=== PATIENT | male | born 1945 | race Caucasian/White ===

== ENCOUNTER 2016-10-13 20:23 | Emergency (ER) | payer SELFPAY ==
[~2016-10-13] VITALS: Ht 170.2 cm; Wt 86.2 kg
[~2016-10-13 20:23] MED LIST: ASPIR-LOW81 MG PO; BENZTROPINE MESY1 MG PO; CIPRO500 MG PO; DOCUSATE SODIU100 MG PO; FLUOXETINE HCL10 MG PO; MAXZIDE 37.5 MG-1 EA PO; MULTIVITAMINS1 EAC6 PO; OMEPRAZOLE20 MG PO; RISPERDAL2 MG PO
[2017-02-01] MEDS ORDERED: FLOMAX0.4 MG PO (18:56)
[2017-02-01] MEDS ORDERED: FLUOXETINE HCL10 MG PO (18:56)
[2017-02-01] MEDS ORDERED: FINASTERIDE5 MG PO (18:57)
[2017-02-01] MEDS ORDERED: RISPERDAL2 MG PO (20:48)
== END 2016-10-13 21:26 | disposition left against medical advice (07) ==
LOC: ED 20:23
DX: Z53.21 Procedure and treatment not carried out due to patient leaving prior to being seen by health care provider (principal)

== ENCOUNTER 2016-11-24 20:28 | Emergency (ER) | payer OTHER ==
[~2016-11-24] VITALS: Ht 170.2 cm; Wt 88.5 kg
[2016-11-24] MEDS ORDERED: VENTOLIN HFA18 GM INH (23:05)
--- NOTE | 2016-11-25 09:56 | EKG ---
[facility] [address] [facility] [place], [place] [address] Signed Normal sinus rhythm Incomplete right bundle branch block Nonspecific T wave abnormality Abnormal ECG No previous ECGs available Confirmed by HALIMA GUO MD ([id number]) on 11/25/2016 9:56:33 AM Electronically Signed By: HALIMA GUO MD 11/25/16 0956 PATIENT NAME: ZOEY HUGHES Electrocardiogram DATE OF : 49 PHYSICIAN: HALIMA GUO MD REPORT #: [id number] REPORT IS CONFIDENTIAL AND NOT TO BE RELEASED WITHOUT AUTHORIZATION
[2017-02-01] MEDS ORDERED: FLUOXETINE HCL10 MG PO (18:56)
[2017-02-01] MEDS ORDERED: FLOMAX0.4 MG PO (18:56)
[2017-02-01] MEDS ORDERED: FINASTERIDE5 MG PO (18:57)
[2017-02-01] MEDS ORDERED: RISPERDAL2 MG PO (20:48)
== END 2016-11-24 23:21 | disposition home or self-care (01) ==
LOC: ED 20:28
DX: J44.9 Chronic obstructive pulmonary disease, unspecified (principal); F19.90 Other psychoactive substance use, unspecified, uncomplicated; I12.9 Hypertensive chronic kidney disease with stage 1 through stage 4 chronic kidney disease, or unspecified chronic kidney disease; N18.9 Chronic kidney disease, unspecified; F17.200 Nicotine dependence, unspecified, uncomplicated; Z88.0 Allergy status to penicillin; Z79.899 Other long term (current) drug therapy
CPT/HCPCS: 71010; 80053; 83880; 84484; 85025; 85379; 93005; 93010; 94640; 99284

== ENCOUNTER → 2017-02-01 | Emergency (ER) | payer OTHER ==
[~2017-02-01] VITALS: Ht 165.1 cm; Wt 94.8 kg
[~2017-02-01] MED LIST changes: +FINASTERIDE5 MG PO; +FLOMAX0.4 MG PO; +VENTOLIN HFA18 GM INH
--- NOTE | 2017-02-01 19:18 | EKG ---
[facility] [address] [facility] [place] [address] Signed Sinus rhythm with sinus arrhythmia with occasional premature ventricular complexes Otherwise normal ECG When compared with ECG of 24-NOV-2016 22:02, premature ventricular complexes are now present Confirmed by HALIMA GUO MD ([id number]) on 02/01/2017 7:18:13 PM Electronically Signed By: HALIMA GUO MD 02/01/17 1918 PATIENT NAME: ZOEY HUGHES JESS Electrocardiogram DATE OF : 49 PHYSICIAN: HALIMA GUO MD REPORT #: [id number] REPORT IS CONFIDENTIAL AND NOT TO BE RELEASED WITHOUT AUTHORIZATION
== END | disposition home or self-care (01) ==
LOC: ED 18:40
DX: R42 Dizziness and giddiness (principal); F31.9 Bipolar disorder, unspecified; F20.0 Paranoid schizophrenia; I12.9 Hypertensive chronic kidney disease with stage 1 through stage 4 chronic kidney disease, or unspecified chronic kidney disease; N18.9 Chronic kidney disease, unspecified; F17.200 Nicotine dependence, unspecified, uncomplicated; Z98.52 Vasectomy status; Z90.89 Acquired absence of other organs; Z88.0 Allergy status to penicillin; Z79.899 Other long term (current) drug therapy
CPT/HCPCS: 71010; 80053; 81001; 85025; 93005; 93010; 96360; 99284; J7030

== ENCOUNTER 2018-03-01 21:41 | Emergency (ER) | payer OTHER ==
[~2018-03-01] VITALS: Ht 165.1 cm; Wt 86.2 kg
--- OUTSIDE RECORDS SUMMARY | 2018-03-01 21:44 | XMS ---
PreManage Notification: ZOEY HUGHES Security Director Of Clinical Services Events 1 event(s) in the past 18 months Most recent security events: Elopement at [facility] 10/13/2016 20:23 - Patient eloped before treatment completed. Details: LWBS CRITERIA MET - Group Notification CARE PROVIDERS There are no care providers on record at this time. Liliya has no Care Guidelines for this patient. EJoanna VISIT COUNT (12 MO.) 1 [facility] TOTAL 1 NOTE: Visits indicate total known visits. ED/UCC VISIT TRACKING (12 MO.) 03/01/2018 21:42 [facility] [place] TYPE: Emergency COMPLAINT: - URINE ISSUES INPATIENT VISIT TRACKING (12 MO.) No inpatient visits to display in this time frame [id number]
[2018-03-01] MEDS ORDERED: CIPRO500 MG PO (22:28)
== END 2018-03-01 22:55 | disposition home or self-care (01) ==
LOC: ED 21:41
PROC: 0T9B70Z Drainage of Bladder with Drainage Device, Via Natural or Artificial Opening (ICD-10-PCS; principal; 2018-03-01)
PROC: 4A0D7LZ Measurement of Urinary Volume, Via Natural or Artificial Opening (ICD-10-PCS; 2018-03-01)
DX: R33.9 Retention of urine, unspecified (principal); I12.9 Hypertensive chronic kidney disease with stage 1 through stage 4 chronic kidney disease, or unspecified chronic kidney disease; N18.9 Chronic kidney disease, unspecified; F20.0 Paranoid schizophrenia; F31.9 Bipolar disorder, unspecified; F17.200 Nicotine dependence, unspecified, uncomplicated; Z88.0 Allergy status to penicillin; Z79.899 Other long term (current) drug therapy
CPT/HCPCS: 51702; 51798; 99283-25

== ENCOUNTER 2018-03-03 11:18 | Emergency (ER) | payer OTHER ==
[~2018-03-03] VITALS: Ht 165.1 cm; Wt 86.2 kg
--- OUTSIDE RECORDS SUMMARY | 2018-03-03 11:22 | XMS ---
PreManage Notification: ZOEY HUGHES Security Carton Wrapper Events 1 event(s) in the past 18 months Most recent security events: Elopement at [facility] 10/13/2016 20:23 - Patient eloped before treatment completed. Details: LWBS CRITERIA MET - Group Notification - [facility] - 2 Visits in 30 Days CARE PROVIDERS SASHA SALVADOR Orthopaedic Surgery 03/02/2018-Current PHONE: [phone] Liliya has no Care Guidelines for this patient. Emy VISIT COUNT (12 MO.) 2 [facility] TOTAL 2 NOTE: Visits indicate total known visits. ED/UCC VISIT TRACKING (12 MO.) 03/03/2018 11:19 [facility] [place] TYPE: Emergency COMPLAINT: - URINE PROBLEM 03/01/2018 21:42 [facility] [place] TYPE: Emergency COMPLAINT: - URINE ISSUES INPATIENT VISIT TRACKING (12 MO.) No inpatient visits to display in this time frame [id number]
== END 2018-03-03 16:10 | disposition home or self-care (01) ==
LOC: ED 11:18
DX: R30.0 Dysuria (principal); F32.9 Major depressive disorder, single episode, unspecified; I12.9 Hypertensive chronic kidney disease with stage 1 through stage 4 chronic kidney disease, or unspecified chronic kidney disease; N18.9 Chronic kidney disease, unspecified; F17.200 Nicotine dependence, unspecified, uncomplicated; Z88.0 Allergy status to penicillin; Z79.899 Other long term (current) drug therapy
CPT/HCPCS: 81001; 99283

== ENCOUNTER 2018-03-25 09:32 | Emergency (ER) | payer OTHER ==
[~2018-03-25] VITALS: Ht 165.1 cm; Wt 86.2 kg
--- OUTSIDE RECORDS SUMMARY | 2018-03-25 09:34 | XMS ---
PreManage Notification: ZOEY HUGHES Security Drop Shipment Clerk Events 1 event(s) in the past 18 months Most recent security events: Elopement at [facility] 10/13/2016 20:23 - Patient eloped before treatment completed. Details: LWBS CRITERIA MET - Group Notification - [facility] - 2 Visits in 30 Days CARE PROVIDERS SASHA SALVADOR Orthopaedic Surgery 03/02/2018-Current PHONE: [phone] Liliya has no Care Guidelines for this patient. Emy VISIT COUNT (12 MO.) 3 [facility] TOTAL 3 NOTE: Visits indicate total known visits. ED/UCC VISIT TRACKING (12 MO.) 03/25/2018 09:33 [facility] [place] TYPE: Emergency COMPLAINT: - FALL 03/03/2018 11:19 [facility] [place] TYPE: Emergency COMPLAINT: - URINE PROBLEM DIAGNOSES: - Chronic kidney disease, unspecified - Nicotine dependence, unspecified, uncomplicated - Other terminal computer operator (current) drug therapy - Allergy status to penicillin - Major depressive disorder, single episode, unspecified - Dysuria - Hypertensive chronic kidney disease with stage 1 through stage 4 chronic kidney disease, or unspecified chronic kidney disease - Hematuria, unspecified 03/01/2018 21:42 [facility] [place] TYPE: Emergency COMPLAINT: - URINE ISSUES DIAGNOSES: - Retention of urine, unspecified - Dysuria - Bipolar disorder, unspecified - Nicotine dependence, unspecified, uncomplicated - Chronic kidney disease, unspecified - Paranoid schizophrenia - Allergy status to penicillin - Hypertensive chronic kidney disease with stage 1 through stage 4 chronic kidney disease, or unspecified chronic kidney disease - Other terminal computer operator (current) drug therapy INPATIENT VISIT TRACKING (12 MO.) No inpatient visits to display in this time frame [id number]
== END 2018-03-25 13:01 | disposition home or self-care (01) ==
LOC: ED 09:32
DX: S20.212A Contusion of left front wall of thorax, initial encounter (principal); I10 Essential (primary) hypertension; F32.9 Major depressive disorder, single episode, unspecified; I12.9 Hypertensive chronic kidney disease with stage 1 through stage 4 chronic kidney disease, or unspecified chronic kidney disease; N18.9 Chronic kidney disease, unspecified; F20.0 Paranoid schizophrenia; F17.200 Nicotine dependence, unspecified, uncomplicated; Z88.0 Allergy status to penicillin; Z79.899 Other long term (current) drug therapy; W19.XXXA Unspecified fall, initial encounter; Y92.002 Bathroom of unspecified non-institutional (private) residence as the place of occurrence of the external cause
CPT/HCPCS: 71045; 80053; 81001; 85025; 96360; 99285-25; J7030

== ENCOUNTER 2018-06-30 07:40 | Emergency (ER) | payer MEDICARE, MEDICAID ==
[~2018-06-30] VITALS: Ht 165.1 cm; Wt 86.2 kg
--- OUTSIDE RECORDS SUMMARY | ~2018-06-30 | XMS | Clinical Summary ---
Demographics + + + | Address | [address] | | | [place] [address] | + + + | Home Phone | | + + + | Preferred Language | Unknown | + + + | Marital Status | Unknown | + + + | Yazdanism Affiliation | Unknown | + + + | Race | Unknown | + + + | Ethnic Group | Unknown | + + + Author + + + | Author | [facility] | | | and [place] | + + + | Organization | [facility] | | | and [place] | + + + | Address | Unknown | + + + | Phone | Unavailable | + + + Care Team Providers + +------+ + | Care Manager Med Surg Name | Role | Phone | + +------+ + PP | Unavailable | + +------+ + Allergies Not on File Medications Not on file Active Problems Not on file Social History + +-------+ +--------+------+ | Tobacco Use | Types | Packs/Day | Years | Date | | | | | Used | | + +-------+ +--------+------+ | Never Assessed | | | | | + +-------+ +--------+------+ + + + | Sex Assigned at | Date Recorded | | | | + + + | Not on file | | + + + + + + + | Job Start Date | Occupation | Industry | + + + + | Not on file | Not on file | Not on file | + + + + + + + + | Travel History | Travel Start | Travel End | + + + + + + | No recent travel history available. | + + Plan of Treatment + + + + + | Health Maintenance | Due Date | Last Done | Comments | + + + + + | Vaccine: | | | | | Dtap/Tdap/Td (1 - | 7 | | | | Tdap) | | | | + + + + + | Vaccine: Zoster (1 | | | | | of 2) | 8 | | | + + + + + | Vaccine: | | | | | Pneumococcal 65+ | 3 | | | | Low/Medium Risk (1 | | | | | of 2 - PCV13) | | | | + + + + + | Vaccine: Influenza | | | | | (Season Ended) | 9 | | | + + + + + Results Not on filefrom Last 3 Months Advance Directives Patient has advance care planning documents on file. For more information, please contact:[facility] [place] [address]"
--- OUTSIDE RECORDS SUMMARY | ~2018-06-30 | XMS | Clinical Summary ---
Demographics + + + | Address | [address] | | | [place] [address] | + + + | Home Phone | | + + + | Preferred Language | Unknown | + + + | Marital Status | | + + + | Synagogue Affiliation | Unknown | + + + | Race | Unknown | + + + | Ethnic Group | Unknown | + + + Author + + + | Author | [facility] | + + + | Organization | [facility] | + + + | Address | Unknown | + + + | Phone | Unavailable | + + + Support + + + + + | Name | Relationship | Address | Phone | + + + + + | None,Per Pt | ECON | [facility] [place] [place] [address] | | + + + + + Care Team Providers + +------+ + | Care Cellar Worker Name | Role | Phone | + +------+ + | Yadira Canela Hilton | PP | | + +------+ + Allergies + + + + + + | Active Allergy | Reactions | Severity | Noted | Comments | | | | | Date | | + + + + + + | Penicillins | Rash | Medium | 12/28/19 | | | | | | 16 | | + + + + + + Current Medications + + +--------+---------+------+------+-------+ | Prescription | Sig. | Disp. | Refills | Star | End | Statu | | | | | | t | Date | s | | | | | | Date | | | + + +--------+---------+------+------+-------+ | risperidone | Take 2 mg by mouth | | | | | Activ | | (RISPERDAL) 2 MG | nightly. | | | | | e | | tabletIndications: | Indications: | | | | | | | Bipolar Mood | Manic-Depression | | | | | | | Disorder | | | | | | | + + +--------+---------+------+------+-------+ | benztropine | Take 1 mg by mouth 2 | | | | | Activ | | (COGENTIN) 1 MG | (two) times daily. | | | | | e | | tabletIndications: | Indications: | | | | | | | Drug-Induced | Extrapyramidal | | | | | | | Extrapyramidal | Reaction caused by | | | | | | | Reaction | Medications | | | | | | + + +--------+---------+------+------+-------+ | apixaban (ELIQUIS) | Take 2 tab po BID X | 60 | 0 | 11 | | Activ | | 5 MG tablet | 7 days1 tab po bid | tablet | | 5/20 | | e | | | | | | 16 | | | + + +--------+---------+------+------+-------+ Active Problems + + + | Problem | Noted Date | + + + | Urinary retention | 12/30/2015 | + + + | Bipolar disorder, unspecified | 12/28/2015 | + + + | GERD (gastroesophageal reflux disease) | 12/28/2015 | + + + | Deep vein thrombosis (DVT) of left lower extremity (HCC) | 12/28/2015 | + + + Social History + +-------+ +--------+------+ | Tobacco Use | Types | Packs/Day | Years | Date | | | | | Used | | + +-------+ +--------+------+ | Current Every Day | | 1 | 30 | | | Smoker | | | | | + +-------+ +--------+------+ + +---+---+---+ | Smokeless Tobacco: | | | | | Former User | | | | + +---+---+---+ + + | Tobacco Cessation: Ready to Quit: Yes; Counseling Given: Yes | + + + + + | Sex Assigned at | Date Recorded | | | | + + + | Not on file | | + + + Last Filed Vital Signs + + + + | Vital Sign | Reading | Time Taken | + + + + | Blood Pressure | 146/85 | 04/27/2016 2:28 PM PDT | + + + + | Pulse | 88 | 04/27/2016 2:28 PM PDT | + + + + | Temperature | 36.7 C (98.1 F) | 01/01/2016 11:02 AM PST | + + + + | Respiratory Rate | 16 | 01/01/2016 11:02 AM PST | + + + + | Oxygen Saturation | 94% | 04/27/2016 2:28 PM PDT | + + + + | Inhaled Oxygen | - | - | | Concentration | | | + + + + | Weight | 90.7 kg (200 lb) | 04/27/2016 2:28 PM PDT | + + + + | Height | 165.1 cm (5' 5") | 12/28/2015 8:17 PM PST | + + + + | Body Mass Index | 33.28 | 04/27/2016 2:28 PM PDT | + + + + Plan of Treatment + + + + + | Health Maintenance | Due Date | Last Done | Comments | + + + + + | Vaccine: | | | | | Dtap/Tdap/Td (1 - | 7 | | | | Tdap) | | | | + + + + + | Colon Cancer | | | | | Screening | 8 | | | | (Colonoscopy) | | | | + + + + + | Vaccine: Zoster (1 | | | | | of 2) | 8 | | | + + + + + | Lung Cancer | | | | | Screening | 3 | | | + + + + + | Vaccine: | | 12/23/2015 | | | Pneumococcal 65+ | 7 | | | | Low/Medium Risk (2 | | | | | of 2 - PPSV23) | | | | + + + + + | Vaccine: Influenza | | 12/23/2015 | | | (Season Ended) | 9 | | | + + + + + Results Not on filefrom Last 3 Months Insurance + +--------+ +------+ + + | Payer | Benefi | Subscriber | Type | Phone | Address | | | t Plan | ID | | | | | | / | | | | | | | Group | | | | | + +--------+ +------+ + + | MEDICARE | MEDICA | [id number] | | | [address] | | | RE | | | | [place] [address] | | | PART A | | | | | | | ONLY | | | | | + +--------+ +------+ + + | VETERANS | VETERA | [id number] | | [phone] | FEE SERVICES [id number] | | ADMINISTRATION | [place] | | | [phone] | | | [address] | | | | [address] [place], [place] | | | [place] | | | | [phone] | | | ON | | | | | + +--------+ +------+ + + + +--------+ +--------+ + + | Guarantor Name | Accoun | Relation to | Date | Phone | Billing Address | | | t Type | Patient | of | | | | | | | | | | + +--------+ +--------+ + + | RUY HUGHES | Person | Self [birth year] | Home: | [address] | | | al/Fam | | 1946 | [phone] | | | [place] | | | 1861 | [place], [place] | | | | | | | [phone] | + +--------+ +--------+ + + | RUY 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
--- OUTSIDE RECORDS SUMMARY | ~2018-06-30 | XMS | Clinical Summary ---
Demographics + + + | Address | [address] | | | [place] [address] | + + + | Home Phone | | + + + | Preferred Language | Unknown | + + + | Marital Status | | + + + | Tenriism Affiliation | Unknown | + + + | Race | Unknown | + + + | Ethnic Group | Unknown | + + + Author + + + | Author | [facility] | + + + | Organization | [facility] | + + + | Address | Unknown | + + + | Phone | Unavailable | + + + Support + + + + + | Name | Relationship | Address | Phone | + + + + + | None,Per Pt | ECON | [facility] [place] [address] | | + + + + + Care Team Providers + +------+ + | Care Route Sales Person Name | Role | Phone | + [...] + + | MEDICARE | MEDICA | [id number] | | | [address] | | | RE | | | | [place] [address] | | | PART A | | | | | | | ONLY | | | | | + +--------+ +------+ + + | VETERANS | VETERA | [id number] | | [phone] | FEE SERVICES [address] | | ADMINISTRATION | [place] | | | [phone] | | | [address]I | | | | [address] [place], [place] | | | [place] | | | | [phone] | | | ON | | | [...] | | | | | | | [phone] | + +--------+ +--------+ + + | RUY HUGHES | 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
--- OUTSIDE RECORDS SUMMARY | ~2018-06-30 | XMS | Clinical Summary ---
Demographics + + + | Address | [address] | | | [place] [address] | + + + | Home Phone | | + + + | Preferred Language | Unknown | + + + | Marital Status | Unknown | + + + | Lutheran Affiliation | Unknown | + + + | Race | Unknown | + + + | Ethnic Group | Unknown | + + + Author + + + | Author | [facility] | | | and [place] | + + + | Organization | [facility] | | | and [place] | + + + | Address | Unknown | + + + | Phone | Unavailable | + + + Care Team Providers + +------+ + | Care Financial Representative Name | Role | Phone | + [...] documents on file. For more information, please contact:[facility] [place] [address]"
--- OUTSIDE RECORDS SUMMARY | 2018-06-30 07:44 | XMS ---
PreManage Notification: ZOEY HUGHES Security Telegraph Repeater Technician Events No recent Security Events currently on file CRITERIA MET - Group Notification CARE PROVIDERS MADELEINESASHA Jade Orthopaedic Surgery 03/02/2018-Current PHONE: [phone] Liliya has no Care Guidelines for this patient. EJoanna VISIT COUNT (12 MO.) 4 [facility] TOTAL 4 NOTE: Visits indicate total known visits. ED/UCC VISIT TRACKING (12 MO.) 06/30/2018 07:42 [facility] [place] TYPE: Emergency COMPLAINT: - SOB/DISTENDED STOMACH 03/25/2018 09:33 [facility] [place] TYPE: Emergency COMPLAINT: - FALL DIAGNOSES: - Hypertensive chronic kidney disease with stage 1 through stage 4 chronic kidney disease, or unspecified chronic kidney disease - Bathroom of unspecified non-institutional (private) residence single-family (private) house as the place of occurrence of the external cause - Chronic kidney disease, unspecified - Paranoid schizophrenia - Major depressive disorder, single episode, unspecified - Allergy status to penicillin - Unspecified fall, initial encounter - Other alf (current) drug therapy - Contusion of left front wall of thorax, initial encounter - Essential (primary) hypertension - Nicotine dependence, unspecified, uncomplicated - Chest pain, unspecified 03/03/2018 11:19 [facility] [place] TYPE: Emergency COMPLAINT: - URINE PROBLEM DIAGNOSES: - Chronic kidney disease, unspecified - Nicotine dependence, unspecified, uncomplicated - Other termite exterminator (current) drug therapy - Allergy status to penicillin - Major depressive disorder, single episode, unspecified - Dysuria - Hypertensive chronic kidney disease with stage 1 through stage 4 chronic kidney disease, or unspecified chronic kidney disease - Hematuria, unspecified 03/01/2018 21:[address] [facility] [place] TYPE: Emergency COMPLAINT: - URINE ISSUES DIAGNOSES: - Retention of urine, unspecified - Dysuria - Bipolar disorder, unspecified - Nicotine dependence, unspecified, uncomplicated - Chronic kidney disease, unspecified - Paranoid schizophrenia - Allergy status to penicillin - Hypertensive chronic kidney disease with stage 1 through stage 4 chronic kidney disease, or unspecified chronic kidney disease - Other alf (current) drug therapy INPATIENT VISIT TRACKING (12 MO.) No inpatient visits to display in this time frame [id number]
[2018-06-30] MEDS ORDERED: ZIAC 2.5-6.25 MG1 EA PO (07:59)
== END 2018-06-30 10:16 | disposition home or self-care (01) ==
LOC: ED 07:40
DX: N40.1 Benign prostatic hyperplasia with lower urinary tract symptoms (principal); R33.9 Retention of urine, unspecified; I12.9 Hypertensive chronic kidney disease with stage 1 through stage 4 chronic kidney disease, or unspecified chronic kidney disease; N18.9 Chronic kidney disease, unspecified; F17.200 Nicotine dependence, unspecified, uncomplicated; F32.9 Major depressive disorder, single episode, unspecified; F20.9 Schizophrenia, unspecified; F31.9 Bipolar disorder, unspecified; Z88.0 Allergy status to penicillin; Z79.899 Other long term (current) drug therapy
CPT/HCPCS: 51702; 51798; 80053; 81001; 83690; 85025; 99284-25; C9113; J2405; J7040

== ENCOUNTER 2019-09-20 07:35 | Day surgery (SDC) | payer MEDICARE, MEDICAID ==
[~2019-09-20] VITALS: Ht 165.1 cm; Wt 86.2 kg
[~2019-09-20 07:35] MED LIST changes: +BISACODYL5 MG PO; +ZIAC 2.5-6.25 MG1 EA PO
--- NOTE | 2019-09-20 08:12 | NUR ---
PT IS A POOR HISTORIAN AND CAN NOT CONFIRM HIS MEDICATION LIST. HE REPORTS, "IT'S THE LIST I BROUGHT WITH ME TO YESTERDAYS APPOINTMENT". HE CAN'T REMEMBER RIGHT NOW WHICH PHARMACY HE USES. WE ARE RELYING ON THE LIST FROM YESTERDAYS APPOINTMENT AND THE MD'S OFFICE NOTE FOR HIS MEDICATION LIST.
--- NOTE | 2019-09-20 09:58 | NUR ---
PT RETURNED TO DAY SURGERY FROM ENDO ROOM WITHOUT RECIEVING MEDICATION FROM RENEWABLE ENERGY CONSULTANT. IV REMOVED, PT'S DESIGNATED KEY WORKER CALLED AND PT AMBULATED TO [facility] TO WAIT FOR KEY WORKER. WILL PLAN FOR FOLLOWUP SCHEDULING C-SCOPE WITH MORE PREP WITHIN THE NEXT TWO WEEKS.
--- NOTE | 2019-09-20 10:50 | OR ---
[facility] [address] [place], [place] [address] Signed DATE OF OPERATION: 09/20/2019 SURGEON: Zofia Emery MD PREOPERATIVE DIAGNOSES: 1. Personal history of colonic polyps in 2013 and 2016. 2. Chronic constipation. 3. Rectal bleeding with guaiac-positive stool. 4. Diverticulosis. POSTOPERATIVE DIAGNOSES: 1. Poor bowel prep. 2. Enlarged prostate. PROCEDURE: Limited colonoscopy (sigmoid colon). ESTIMATED BLOOD LOSS: None. INDICATIONS: Ruy is a 74-year-old gentleman, asked to see me for a followup colonoscopy. From his records, he has had colonic polyps removed in 2013 and in 2016. He had precancerous polyp in 2016. He was asked to come back in four years. He also complains of chronic constipation. He noticed some blood with his stools, so he went to our local urgent care clinic. He was guaiac-positive on exam. Consequently, he was asked to see me with respect to the above. We can see from his records, he had five polyps taken out in 2016, all were 6 mm or less in diameter. Also, he is known to have diverticulosis. No family history of colon cancer or polyps. He told me today he has had 5 or 6 colonoscopies in his life. He said two of those were at [facility] in [place], [place]. He told me he is quite convinced he had no drugs for those two colonoscopies. Consequently, he wanted to proceed today without any drugs. He told me if the pain was too much, then he would allow the anesthesia provider to provide medications. In the office, I gave him a pamphlet on colonoscopy. We looked at that together along with the risks including, but not limited to gas bloating, crampy abdominal pain, bleeding, perforation requiring surgery, and missed diagnosis. In addition, he is well aware that colon polyps grow and become colon cancers. He had expressed understanding and wished to proceed. DESCRIPTION OF PROCEDURE: Electronically Signed By: ZOFIA EMERY MD 09/20/19 1050 PATIENT NAME: RUY HUGHES OPERATIVE REPORT DATE OF : 49 REPORT #: [id number] PHYSICIAN: ZOFIA EMERY MD PCP: PAN SUTTON MD REPORT IS CONFIDENTIAL AND NOT TO BE RELEASED WITHOUT AUTHORIZATION [facility] [address] [place] [id number] Signed Ruy was taken into our endoscopy suite and placed in the left lateral decubitus position. We did have our anesthesia provider in the room monitoring the patient. We did not give any drugs. He told us that he took his bowel prep and felt he had multiple good bowel movements. On digital rectal exam, we can see that his prostate was moderately enlarged and indurated. The adult colonoscope was then introduced. We immediately encountered thick brown particulate liquid stool matter. We advanced the scope up into the mid sigmoid colon. We continued to encounter large amounts of thick particulate brown liquid stool matter. At that point, it was not safe to advance the scope any further. Consequently, we had to withdrawal the scope. Of course, Ruy was awake during this and he was able to follow us on our TV screen. Ruy himself said that "I must need a double bowel prep." After this, the gas had been suctioned out and the gastroscope removed. Ruy had tolerated that limited colonoscopy quite well. RECOMMENDATIONS: Ruy will be rescheduled with a double bowel prep through my office next week. MD HOMERO Lucas/MODL /[id number] cc: Zofia Emery MD Copies: ZOFIA EMERY MD ~ Electronically Signed By: ZOFIA EMERY MD 09/20/19 1050 PATIENT NAME: RUY HUGHES OPERATIVE REPORT DATE OF : 49 REPORT #: [id number] PHYSICIAN: ZOFIA EMERY MD PCP: PAN SUTTON MD REPORT IS CONFIDENTIAL AND NOT TO BE RELEASED WITHOUT AUTHORIZATION
== END 2019-09-20 09:54 | disposition home or self-care (01) ==
LOC: DS 07:35 → OPS 07:35 → DS 09:00 → OPS 09:00
PROVIDERS: Colon & Rectal Surgery
PROC: 0DJD8ZZ Inspection of Lower Intestinal Tract, Via Natural or Artificial Opening Endoscopic (ICD-10-PCS; principal; 2019-09-20 09:00)
DX: K62.5 Hemorrhage of anus and rectum (principal); R19.5 Other fecal abnormalities; N40.0 Benign prostatic hyperplasia without lower urinary tract symptoms; I10 Essential (primary) hypertension; F31.9 Bipolar disorder, unspecified; F17.210 Nicotine dependence, cigarettes, uncomplicated; Z86.010 Personal history of colon polyps; Z79.899 Other long term (current) drug therapy; Z88.0 Allergy status to penicillin

== ENCOUNTER 2020-01-19 02:09 | Emergency (ER) | payer MEDICARE, MEDICAID ==
[~2020-01-19] VITALS: Ht 165.1 cm; Wt 88.5 kg
[~2020-01-19 02:09] MED LIST changes: +RISPERIDONE2 MG PO
--- OUTSIDE RECORDS SUMMARY | 2020-01-19 02:12 | XMS ---
PreManage Notification: ZOEY HUGHES Security Hat Body Inspector Events No recent Security Events currently on file CRITERIA MET - Group Notification CARE PROVIDERS Vincenzo Singh Orthopaedic Surgery 03/02/2018-Current PHONE: [phone] Liliya has no Care Guidelines for this patient. Emy VISIT COUNT (12 MO.) 1 [facility] TOTAL 1 NOTE: Visits indicate total known visits. ED/UCC VISIT TRACKING (12 MO.) 01/19/2020 02:09 [facility] [place] TYPE: Emergency COMPLAINT: - ABDOMINAL PAIN INPATIENT VISIT TRACKING (12 MO.) No inpatient visits to display in this time frame [email or web address]
--- NOTE | 2020-01-19 20:12 | EKG ---
[facility] [address] [facility] [place], [place] [address] Signed Sinus bradycardia Incomplete right bundle branch block Cannot rule out Anterior infarct (cited on or before 16-SEP-2019) Abnormal ECG When compared with ECG of 16-SEP-2019 13:47, No significant change was found Confirmed by ROBYN PATRICIA DO ([id number]) on 01/19/2020 8:12:34 PM Electronically Signed By: ROBNY PATRICIA DO 01/19/202011 PATIENT NAME: ZOEY HUGHES Electrocardiogram DATE OF : 49 PHYSICIAN: ROBYN PATRICIA DO REPORT #: [id number] REPORT IS CONFIDENTIAL AND NOT TO BE RELEASED WITHOUT AUTHORIZATION
== END 2020-01-19 06:19 | disposition home or self-care (01) ==
LOC: ED 02:09
DX: K80.70 Calculus of gallbladder and bile duct without cholecystitis without obstruction (principal); K85.90 Acute pancreatitis without necrosis or infection, unspecified; F19.10 Other psychoactive substance abuse, uncomplicated; F32.9 Major depressive disorder, single episode, unspecified; I12.9 Hypertensive chronic kidney disease with stage 1 through stage 4 chronic kidney disease, or unspecified chronic kidney disease; N18.9 Chronic kidney disease, unspecified; F17.200 Nicotine dependence, unspecified, uncomplicated; Z88.0 Allergy status to penicillin; Z79.899 Other long term (current) drug therapy
CPT/HCPCS: 51798; 71045; 74177; 76705; 80053; 81001; 83690; 83735; 84484; 85025; 85610; 85730; 93005; 93010; 99285-25; G0480; J7030; Q9967

== ENCOUNTER 2020-01-20 12:45 | Observation (INO) | payer MEDICARE, MEDICAID ==
[~2020-01-20] VITALS: Ht 165.1 cm; Wt 92.2 kg
--- OUTSIDE RECORDS SUMMARY | 2020-01-20 12:48 | XMS ---
PreManage Notification: ZOEY HUGHES Security Flatwork Catcher Events No recent Security Events currently on file CRITERIA MET - Group Notification - [facility] - 2 Visits in 30 Days CARE PROVIDERS Vincenzo Singh Orthopaedic Surgery 03/02/2018-Current PHONE: [phone] Liliya has no Care Guidelines for this patient. Emy VISIT COUNT (12 MO.) 2 [facility] TOTAL 2 NOTE: Visits indicate total known visits. ED/UCC VISIT TRACKING (12 MO.) 01/20/2020 12:46 [facility] [place] TYPE: Emergency COMPLAINT: - UPPER ABD PAIN, DIARRHEA, HYPERVENTILATING 01/19/2020 02:09 [facility] [place] TYPE: Emergency COMPLAINT: - ABDOMINAL PAIN INPATIENT VISIT TRACKING (12 MO.) No inpatient visits to display in this time frame [id number]
--- NOTE | 2020-01-20 18:05 | NUR ---
PT RESTING IN BED ALERT AND ORIENTED. V/S STABLE.
--- NOTE | 2020-01-20 19:10 | NUR ---
SHIFT REPORT FROM NURSE SHOOK. PT IS LAYING IN BED ON HIS BACK. PT STATES HE IS STILL "TENDER" IN ABDOMEN. ENCOURAGED PT TO AMBULATE BEFORE BED THIS EVENING AND PT AGREES. PT DENIES FURTHER NEEDS AT THIS TIME. CALL LIGHT WITHIN REACH
--- NOTE | 2020-01-20 19:51 | NUR ---
CLINICAL LABORATORY TECHNICIAN INFORMED THIS NURSE THAT PT WAS VOMITING. 8MG ZOFRAN ADMINISTERED IV. SO FAR PT HAS JUST HAD DRY HEAVES. CALL LIGHT WITHIN REACH
--- NOTE | 2020-01-20 21:30 | NUR ---
IN ROOM FOR ASSESSMENT AND VS. PT IS DRY HEAVING LOUDLY. 12.5MG PHENERGAN DILUTED PER PROTOCOL AND ADMINISTERED VIA IV PIGGYBACK. PT REPORTS A HEADACHE BUT DECLINES PRN PAIN MEDS AT THIS TIME. PT IS ORIENTED BUT DELUSIONAL STATING HE CAN SEE "VIRUSES IN THE VITO IN SWARMS" AND REPORTS THAT HIS LITTLE BROTHER "ATE HIS FRECKLES" WHEN HE WAS A YOUNG BOY. PT IS CALM AND RELAXED, TALKATIVE IN BED DURING PHENERGAN ADMINISTRATION. THIS NURSE STAYS IN ROOM DURING ADMINISTRATION.
--- NOTE | 2020-01-20 22:49 | NUR ---
CHECKED ON PT. PT IS LAYING RIGHT LATERAL, RESTING QUIETLY. NO NAUSEA AT THIS TIME. CALL LIGHT WITHIN REACH. BED ALARM ON FOR SAFETY.
--- NOTE | 2020-01-20 23:27 | NUR ---
CALL LIGHT ANSWERED. EMPTIED URINAL. WIPED SIDE TABLE AND FLOOR WITH HOOKER WIPES FROM URINE SPILLED. NO OTHER NEEDS AT THIS TIME.
--- NOTE | 2020-01-20 23:56 | NUR ---
DISCUSSED NPO STATUS WITH pt, pt VERBALIZED UNDERSTANDING. PROVIDED ORAL SWABS. NO REQUESTS AT THIS TIME. CALL LIGHT WITHIN REACH.
--- NOTE | 2020-01-21 02:53 | NUR ---
CALL LIGHT ANSWERED. PT C/O R ARM PAIN NEAR IV SITE. IV IS INFILTRATED AND D/C'D. NEW IV PLACED ON L FA. PT REPOSITIONED C/O BACK PAIN WHICH RESOLVED WITH REPOSITIONING. CALL LIGHT WITHIN REACH
--- NOTE | 2020-01-21 05:10 | NUR ---
IN ROOM FOR MORNING VS AND ASSESSMENT. PT REPORTS PAIN IN HIPS, BACK, NECK AND OCCASIONALLY ABDOMEN. WHEN ASKED PT IF HE NEEDS PAIN MEDS HE ANSWERS " I DONT KNOW". WITH FURTHER DISCUSSION, PT AGREES TO "SOMETHING FOR PAIN". 0.5MG DILAUDID IV. ASSESSMENT COMPLETE. VSS. NO FURTHER NEEDS AT THIS TIME.
--- NOTE | 2020-01-21 06:51 | CONS ---
[facility] [address], [place] [address] Signed DATE OF CONSULTATION: 01/20/2020 CHIEF COMPLAINT: Right upper quadrant abdominal pain. HISTORY OF PRESENT ILLNESS: Ruy is a 74-year-old gentleman, who came to the emergency room yesterday with some right upper quadrant abdominal pain. His liver function tests were not particularly concerning. Lipase was only just over 200. He is feeling better and was allowed to be discharged to home and was scheduled to come and see me in the office. He came back today with continued right upper quadrant abdominal pain and some nausea. White count is normal, but liver function tests are up just a bit. Lipase about the same around 250. He is also positive for methamphetamines and ecstasy. Given his current situation, I was asked to admit him as a general surgeon on-call. He has been given Rocephin and Flagyl in the meantime along with some IV fluids and pain control. Overall, he said he is feeling much better. PAST MEDICAL HISTORY: Hypertension, depression, paranoid schizophrenia, bipolar disorder, urinary retention and diverticulosis. PAST SURGICAL HISTORY: Includes tonsils, vasectomy and a colonoscopy with Dr. Emery in 2019. SOCIAL HISTORY: He likes to smoke. He only drinks once in a while. He lives alone and drives. He prefers the [facility]. Ashly Wilkinson is his friend at [phone]. Dr. Pan Sutton is his primary care provider. FAMILY HISTORY: Unremarkable. REVIEW OF SYSTEMS: He had 10 systems reviewed. There is nothing new to add. ALLERGIES: Penicillin. MEDICATIONS: Benztropine, Risperdal, omeprazole, Maxzide, fluoxetine, Flomax, finasteride, bisoprolol, bisacodyl, docusate and risperidone. PHYSICAL EXAMINATION: Electronically Signed By: ZOFIA EMERY MD 01/21/20 0651 PATIENT NAME: RUY HUGHES CONSULTATION DATE OF : 49 REPORT #: [id number] PHYSICIAN: ZOFIA EMERY MD PCP: PAN SUTTON MD REPORT IS CONFIDENTIAL AND NOT TO BE RELEASED WITHOUT AUTHORIZATION [facility] [address], [place] [address] Signed VITAL SIGNS: Blood pressure 146/87, heart rate 75, respiratory rate 16, temperature is 97.9, he is 99% on room air. He is 5 feet 5 inches, 88 kg. GENERAL: Ruy is a 74-year-old gentleman, who appears his stated age. He is lying supine in his hospital bed. His nurses with us. He is not ill or toxic. He is not jaundiced. LUNGS: Generally clear to auscultation bilaterally. HEART: Regular rate and rhythm. ABDOMEN: Obese but soft and nontender after his pain medication. LABORATORY DATA: White blood count 7.4, hemoglobin 14, neutrophils 73, platelets 215. BUN 14, creatinine 0.78, total bilirubin is 1.0, AST 191, ALT 252, alkaline phosphatase 127, albumin is 4, lipase 251. Tox screen showed positive for meth and ecstasy. RADIOGRAPHIC STUDIES: The CT scan from yesterday shows gallstones with a mildly thickened gallbladder wall and some mild inflammation around the pancreas and diverticulosis in the colon. Ultrasound from yesterday showed the stones with one stuck in the neck of the gallbladder. The gallbladder wall is a little thick at 5.6 mm. He had a positive Hernandes's sign and the common bile duct was 7 mm. ASSESSMENT AND PLAN: Ruy is a 74-year-old gentleman, who presents with ongoing acute cholecystitis, cholelithiasis, and mild pancreatitis. He has been admitted with IV fluids, antibiotics and pain control. We are going to hydrate him overnight, repeat the labs in the morning. More than likely, we will do a surgery sometime tomorrow or the next day. I have reviewed all this with Ruy in detail. He has expressed understanding and agrees with the above plan. Zofia Emery MD ALB/MODL /[id number] cc: Pan Sutton MD Copies: PAN SUTTON DMD Electronically Signed By: ZOFIA EMERY MD 01/21/20 0651 PATIENT NAME: RUY HUGHES CONSULTATION DATE OF : 49 REPORT #: [id number] PHYSICIAN: ZOFIA EMERY MD PCP: PAN SUTTON MD REPORT IS CONFIDENTIAL AND NOT TO BE RELEASED WITHOUT AUTHORIZATION [facility] [address] [place] [address] Signed ~ Electronically Signed By: ZOFIA EMERY MD 01/21/20 0651 PATIENT NAME: RUY HUGHES CONSULTATION DATE OF : 49 REPORT #: [id number] PHYSICIAN: ZOFIA EMERY MD PCP: PAN SUTTON MD REPORT IS CONFIDENTIAL AND NOT TO BE RELEASED WITHOUT AUTHORIZATION
--- NOTE | 2020-01-21 07:46 | NUR ---
THIS RN IN PTS ROOM TO START PTS ANTIBIOTIC AND THEN WILL START PTS POTASSIUM DUE TO THE POTASSIUM HAVING TO RUN IN FOR 4 HRS. PT STATES THAT HIS PAIN IS A 5/10 AND STATES THAT IT IS TOLERABLE AT THIS TIME. PT STATED TO THIS RN "I WONDER WHAT THE FASTEST THING IN NATURE"
--- NOTE | 2020-01-21 09:30 | NUR ---
PATIENT RESTING IN BED. RN IN ROOM. VITAL SIGNS AND I&O DONE. CALL LIGHT WITHIN REACH. NO OTHER NEEDS AT THIS TIME
--- NOTE | 2020-01-21 09:34 | NUR ---
In to see pt, he is speaking with Ph[facility].
--- NOTE | 2020-01-21 10:00 | NUR ---
Returned to speak with pt for CM assessment. He has gone to surgery.
--- NOTE | 2020-01-21 10:07 | NUR ---
PATIENT RESTING IN BED. PATIENT'S BODY CLEANED WITH HIBICLEANS BEFORE HE GOES TO SURGERY. GOWN CHANGED. CALL LIGHT WITHIN REACH. NO OTHER NEEDS AT THIS TIME
--- NOTE | 2020-01-21 10:18 | NUR ---
MED REC COMPLETE
--- NOTE | 2020-01-21 10:30 | NUR ---
PT OFF FLOOR TO SURGERY
--- NOTE | 2020-01-21 11:47 | EKG ---
[facility] [address] [facility] [place], [place] [address] Signed Normal sinus rhythm Incomplete right bundle branch block Cannot rule out Anterior infarct (cited on or before 16-SEP-2019) Abnormal ECG When compared with ECG of 19-JAN-2020 02:15, No significant change was found Confirmed by ROBYN PATRICIA DO ([id number]) on 01/21/2020 11:46:40 AM Electronically Signed By: ROBYN PATRICIA DO 01/21/20 1147 PATIENT NAME: ZOEY HUGHES JESS Electrocardiogram DATE OF : 49 PHYSICIAN: ROBYN PATRICIA DO REPORT #: [id number] REPORT IS CONFIDENTIAL AND NOT TO BE RELEASED WITHOUT AUTHORIZATION
--- NOTE | 2020-01-21 12:47 | NUR ---
01/21/20 1247 Natasha Gonzales 1238- PT TO PACU IN SUPINE POSITION. EYES CLOSED. DOES NOT RESPOND TO VERBAL STIMULI. BREATHING EASY AND UNLABORED WITH REPOSITIONING. SPO2 >95% ON 6 L O2 VIA SIMPLE MASK. LAP SITES CDI. 1244- PT CONTINUES TO SLEEP, DOES NOT RESPOND TO VERBAL STIMULI. VSS. BREATHING EASY AND UNLABORED WITH PILLOW POSITIONING.
--- NOTE | 2020-01-21 13:45 | NUR ---
PT BACK TO FLOOR. PT HAS 5 LAP SITES. ALL ARE CLEAN/ DRY/ INTACT. PT STATES THAT HIS PAIN IS OKAY. PT ON 4L NC, THIS RN PLACED PT ON CPOX.
--- NOTE | 2020-01-21 14:32 | NUR ---
PT BACK IN FROM PACU. PT SITTING UPRIGHT IN BED, WATCHING TV WITH DAMP W[employer] CLOTH ON FOREHEAD. PT STATED HE WONDERED IF PAIN MEDS WERE MAKING HIS TALK CONSTANTLY-WHETHER ANYONE IS THERE OR NOT. PASSED ON TO RN HOSPITALASHLEY HSOOK. SHE WILL FOLLOW UP. PT REQUESTED PRAYER, WILL FOLLOW
--- NOTE | 2020-01-21 14:45 | NUR ---
THIS RN IN TO CHECK ON PT. PT STATES THAT HE IS WILLING TO GO HOME THIS EVENING. PT STATES THAT HE DROVE HIMSELF TO THE HOSPITAL. PT STATES THAT HIS PAIN IS GOOD AND HE HAS NO NAUSEA. THIS RN PROVIDED PT WITH WATER, CRACKERS, AND JELLO. THIS RN TO TALK TO RENE RN TO DISCUSS A SAFE DISCHARGE PLAN. PT ABLE TO VOID IN URINAL PRIOR TO THIS RN IN ROOM
[2020-01-21] MEDS ORDERED: HYDROCODON-ACE1 EAC8 PO (14:57)
--- NOTE | 2020-01-21 15:00 | NUR ---
In and spoke with Ruy. He lives alone in an apartment. He drove himself to the hospital and plans on driving home. Discussed with pt he can absolutely not drive home today. We will send by taxi and give a taxi ticket to return for his vehicle tomorrow. He is stating has 0 money to take a taxi to fruit picker his car and his friend had a knee replacement last week and cannot drive. He agrees to not drive. Pt admits to alcohol and polysubstance abuse, he does not say last use, but states its been a while. I also asked about his mental health diagnosis and he does not believe they are accurate. I offered Peer to Peer support for A&D and to assist him with [employer] for resource. He decline both. He states he has food and denies any needs when he arrives home. I discussed food for tonight, we will send with a box dinner so he does not have to cook tonight. He is in contact with [facility] and [facility] and states they assist him as needed. He has not walked or been out of bed. He states he had a "bad fall" a year ago and was injured. Texted Dr. Nieto and requested order for PT and verbal order received. Order entered and PT notified.
--- NOTE | 2020-01-21 16:15 | NUR ---
THIS RN IN PTS ROOM TO DO POST OPP VITAL CHECK #3. PT WAS UP WITH PHYSICAL THERAPY TO ASSESS IF PT COULD GO HOME SAFELY. THIS RN AND VIANNEY FROM PT DISCUSSED WITH PT THAT IT MIGHT BE SAFER FOR PT TO STAY THE NIGHT FOR SAFETY. PT AGREEABLE TO STAY. PT HAS SLIGHT SHADOWING ON SOME OF HIS LAP SITES. OTHERWISE LAP SITES ARE CLEAN/ DRY/ INTACT. PT STATES PAIN IS OKAY AND DENIES NEED FOR PAIN MED AT THIS TIME.
--- NOTE | 2020-01-21 16:24 | NUR ---
Spoke with PT and RN. Pt did not tolerate walking well, he lost his balance. All state concern for pt to leave tonight. Spoke with pt and he agrees to stay and will dc tomorrow. I will request orders for a walker from Dr. Nieto.
--- NOTE | 2020-01-21 17:15 | NUR ---
THIS RN IN PTS ROOM TO GET PTS LAST POST OPP VITALS. PT STATES THAT HE NEEDS TO GO TO THE RESTROOM. THIS RN ABLE TO ASSIST PT TO RESTROOM. PT STEADY ON HIS FEET BUT DID DOUBLE OVER, THIS RN ASKED IF PT WAS IN PAIN, PT STATED NO PAIN, JUST TIGHTNESS. THIS RN EDUCTAED PT THAT THE TIGHTNESS WILL GO AWAY.
--- NOTE | 2020-01-21 17:20 | NUR ---
THIS RN CALLED TO UPDATE HIM THAT PT WAS GOING TO STAY THE NIGHT SO HE CAN HAVE A SAFE DISCHARGE. PT STATES UNDERSTANDING OF THIS
--- NOTE | 2020-01-21 17:27 | NUR ---
PATIENT RESTING IN BED. VITAL SIGNS DONE BY RN. I&O DONE. WARM BLANKET PROVIDED. CALL LIGHT WITHIN REACH. NO OTHER NEEDS AT THIS TIME
--- NOTE | 2020-01-21 20:00 | NUR ---
V/S ARE WDL SO FAR. LAP IN CISIONS X5 ON ABDOMEN HAVE A SCANT AMOUNT OF DRAINAGE PRESENT. DRESSINGS ARE INTACT. PT SO FAR ON RA. RLL HAS SOME CRACKLES PRESENT, ALL OTHER LOBES ARE CLEAR, NO PERIPHERAL EDEMA NOTED NO OTHER CONCERNS NOTED SO FAR. WILL CONTINUE TO MONITOR.
--- NOTE | 2020-01-21 22:10 | NUR ---
PT AT THIS TIME ON 1.5L O2 DUE TO O2 SATS AT 87%.
--- NOTE | 2020-01-21 23:42 | NUR ---
PT SLEEPING. STILL ON 1.5L O2 FOR NOW. NO NEW CONCERNS WERE NOTED.
--- NOTE | 2020-01-22 02:05 | NUR ---
HR AT THIS TIME IN THE LOW TO UPPER 50'S, OTHER V/S ARE WDL. URINE OUTPUT IS ADEQUATE SO FAR. PT NOW ON 3L O2 NC DUE TO O2 SATS IN THE UPPER 80'S. PT SEEMS TO BE A MOUTH BREATHER... ABD SOUNDS ARE PRESENT, PT PASSING FLATUS, ABD IS SOFT AND NON-TENDER TO TOUCH. NO OTHER NEW CONCERNS WERE NOTED WITH THIS ASSESSMENT. WILL CONTINUE TO MONITOR.
--- NOTE | 2020-01-22 04:59 | NUR ---
PT STILL CATALINA IN THE LOW TO UPPER 40'S. OTHER V/S ARE WDL. INCISIONS SITES ARE UNCHANGED, PT NOW BACK ON ROOM AIR WITH SATISFACTORY O2 SATS SO FAR. NO OTHER NEW CONCERNS WERE NOTED WITH THIS ASSESSMENT.
--- NOTE | 2020-01-22 05:36 | NUR ---
PT OVERALL HAD AN UNEVENTFUL NIGHT. PAIN WAS NOT AN ISSUE ALL SHIFT. ABD SOUNDS ARE ACTIVE, ABD IS SOFT TO TOUCH, LAP SITE DRESSINGS ARE INTACT WITH MINIMAL SHADOWING PRESENT. PT HYPERVERBAL MOST OF THE TIME WHEN AWAKE. HR WHILE PT WAS SLEEPING DROPPED INTO THE 40'S, OTHER V/S WERE WDL, WILL UPDATE MD EMERY ON THAT. PT WAS ALSO PUT ON 3L 02 WHILE SLEEPING DUE TO O2 SATS AT 87%. PT NOW BACK ON ROOM AIR AT THIS TIME. URINE OUTPUT IS ADEQUATE SO FAR.
--- NOTE | 2020-01-22 06:22 | NUR ---
VERBALLY UPDATED MD EMERY ON PT CONDITION THIS SHIFT. HE IS ALSO AWARE OF LOW HR AND NEED FOR O2.
--- NOTE | 2020-01-22 06:23 | OR ---
[facility] [address] [place] [address], [place] [address] Signed DATE OF OPERATION: 01/21/2020 SURGEON: Zofia Emery MD PREOPERATIVE DIAGNOSES: 1. Acute cholecystitis, cholelithiasis. 2. Mild pancreatitis. POSTOPERATIVE DIAGNOSES: 1. Acute cholecystitis, cholelithiasis. 2. Mild pancreatitis. PROCEDURES: Laparoscopic cholecystectomy with intraoperative cholangiogram. ESTIMATED BLOOD LOSS: None. FINDINGS: Ruy indeed had a mildly thickened gallbladder wall with a stone stuck in the neck of the gallbladder. He did have some other smaller stones. His intraoperative cholangiogram appeared unremarkable on a monitor in the OR. Contrast did flow readily into the duodenum. INDICATIONS: Ruy is a 74-year-old gentleman, who came to the emergency room two days ago with right upper quadrant abdominal pain. His laboratory work was not particularly overly concerning and he seemed to be much better while in the ER. He was had been given no narcotics or antiemetics and so forth. The CT scan showed his stones and a thickened gallbladder wall with some mild inflammation of the head of the pancreas. Ultrasound confirmed the stones in the gallbladder along with the wall 5.6 mm in thickness and the common bile duct around 7 mm. He was discharged to home from the ER and asked to see me in a few days. He came back the next day with ongoing right upper quadrant abdominal pain with some nausea. Again, his laboratory work was not overly concerning and had not changed to any significant degree. However, we decided to go ahead and admit him last evening and start his IV fluids, antibiotics, and pain control. We corrected his potassium and we were able to bring him to surgery this morning. I had met with Ruy last night and this morning, and I explained to him the location and function of the gallbladder. We discussed laparoscopic versus open cholecystectomy. He understands expected intraop and postop course. We did review the risks including, but not limited Electronically Signed By: ZOFIA EMERY MD 01/22/20 0623 PATIENT NAME: RUY HUGHES OPERATIVE REPORT DATE OF : 49 REPORT #: [id number] PHYSICIAN: ZOFIA EMERY MD PCP: PAN SUTTON MD REPORT IS CONFIDENTIAL AND NOT TO BE RELEASED WITHOUT AUTHORIZATION [facility] [address] [place] [address] Signed to bleeding, infection, scarring, change in contour of the skin, damage to bowel damage to main bile duct, incisional hernias and other unforeseen comorbidities. He had expressed understanding and wished to proceed. PROCEDURE NOTE: Ruy was taken in the operating room and placed in the supine position under general endotracheal tube anesthesia. He was already on his preoperative antibiotics. His SCDs were utilized. He was already on preoperative Lovenox. He was then prepped and draped in the usual sterile fashion. All trocars were placed in usual positions under direct visualization of camera without difficulty. Pictures were taken throughout for photo documentation. The gallbladder was grasped and elevated into the right upper quadrant. We could immediately see that it was uaby-do-tlsurpmqms thickened and somewhat distended. We dissected out the triangle of Calot and we pushed the large stone up away from the neck of the gallbladder. We inserted the intraoperative cholangiocatheter into the cystic duct. The intraoperative cholangiogram was unremarkable. The cystic duct stump was secured with a PDS Endoloop along with a single clip to lynnette its location. After this, we placed a couple of clips on the cystic artery and it had been divided. We very slowly and carefully removed the gallbladder from his liver. He has a very fatty liver and the gallbladder was somewhat deep. It took a few extra minutes with slow diligent dissection and eventually the gallbladder was free. We placed it into our EndoCatch bag. We had an additional nurse scrub in. We had used our fan retractor through the midline to help hold the transverse colon and his omentum down and out of the way for the dissection. After this, the right upper quadrant was irrigated and suctioned out until clear. We used our laparoscopic suturing device to pass 0 Vicryl suture on either side of the fascia of the subxiphoid in the mid epigastric trocar sites. These were tied down to close this fascia primarily. All the gas was allowed to escape and all the remaining trocars were removed along with the gallbladder. Our circulating nurse took a picture of the gallbladder on the back table. We then closed the fascia of the supraumbilical trocar site with interrupted [id number] and simple 0-Vicryl sutures. Local anesthetic was injected into all trocar sites. Each trocar site was irrigated and suctioned out until clear. The skin and dermis of each trocar site were closed with interrupted 3-0 subcuticular Monocryl sutures. Dry gauze and tape were applied all incisions. Ruy was awakened from his anesthesia, extubated in the OR, and taken to recovery room in stable condition. Zofia Emery MD ALB/MODL Electronically Signed By: ZOFIA EMERY MD 01/22/20 0623 PATIENT NAME: RUY HUGHES OPERATIVE REPORT DATE OF : 49 REPORT #: [id number] PHYSICIAN: ZOFIA EMERY MD PCP: PAN SUTTON MD REPORT IS CONFIDENTIAL AND NOT TO BE RELEASED WITHOUT AUTHORIZATION [address] [place] [address] Signed /[id number] cc: MD Zofia Camp MD Copies: PAN SUTTON DMD, ANDREW L MD ~ Electronically Signed By: ZOFIA EMERY MD 01/22/20 0623 PATIENT NAME: RUY HUGHES OPERATIVE REPORT DATE OF : 49 REPORT #: [id number] PHYSICIAN: ZOFIA EMERY MD PCP: PAN SUTTON MD REPORT IS CONFIDENTIAL AND NOT TO BE RELEASED WITHOUT AUTHORIZATION
--- NOTE | 2020-01-22 08:55 | NUR ---
Pt awake in bed, eating breakfast. Morning meds given and assessment completed. IV flagyl now infusing. Pt denies pain or nausea. Is eating a light breakfast, educated on low-fat food intake. Pt is a SBA w/ walker. Pt own walker brought in for use. Will work w/ PT/OT. Call light in reach.
--- NOTE | 2020-01-22 09:10 | NUR ---
Walker was delivered from [facility]. Pt walking in the monge with PT and walker.
--- NOTE | 2020-01-22 10:00 | NUR ---
Visited with pt. UPdated [employer] called and he will have $17 copay. He states this will be difficult. Encouraged to pay $5 a month or whatever he can afford. Pt states he feels better today. States PT provided instruction for walker use, not sure if he will follow. Encouraged pt to follow all of their advice as this is for safety.
--- NOTE | 2020-01-22 10:33 | NUR ---
PATIENT AWAKE IN CHAIR, VITALS AND I&OS CHARTED. CALL LIGHT IN REACH
--- NOTE | 2020-01-22 10:46 | NUR ---
CALLED IN REGARDS TO DISCHARGING THIS PT, OK TO DISCHARGE AT THIS TIME. ALSO PHYSICAL THERAPY FELT PT DID WELL IS STEADY TODAY, PT NOW HAS FWW ALSO DELIVERED AND USED WITH PHYSICAL THERAPY.
--- NOTE | 2020-01-22 14:17 | NUR ---
PT SITTING IN CHAIR READING. PT SAID HE IS STILL IMPROVING. THANKED ME FOR COMING BY. GAVE BLESSING AND I WILL FOLLOW.
--- NOTE | 2020-01-23 13:46 | PATH ---
[facility] [address] [place] [address] Signed SPECIMEN(S): A GALLBLADDER AND STONES SPECIMEN SOURCE: A. GALLBLADDER AND STONES CLINICAL HISTORY: Pre/post: Right upper abdominal pain, cholelithiasis, acute cholecystitis. FINAL PATHOLOGIC DIAGNOSIS: Gallbladder and stones, cholecystectomy: - Cholelithiasis with acute on chronic cholecystitis. DDF:cml:C2NR MICROSCOPIC EXAMINATION: Histologic sections of all submitted blocks are examined by light microscopy. These findings, together with the gross examination, support the pathologic diagnosis. GROSS DESCRIPTION: The specimen, labeled "MK," and designated on the requisition "gallbladder," is received in formalin and consists of Specimen: Previously opened gallbladder. Dimensions: 8.5 x 5.0 x 1.4 cm. Serosa: [place]pe[place]-chapa and smooth. Cystic Duct: Unobstructed. Calculi: One brown-chapa, irregular calculus (2.6 x 2.5 x 2.2 cm). Mucosa: Red-brown and velvety. Wall thickness: 1.1 cm. Lymph node: No pericystic lymph nodes are grossly identified. Additional: None. Door Attendant sections are submitted in cassette (A1). AC (under the direct supervision of a pathologist) The Gross Description was prepared using a voice recognition system. The report was reviewed for accuracy; however, sound-alike word errors, addition and/or deletions may occur. If there is any question about this report, please contact Client Services. PERFORMING LABORATORY: The technical component was performed by [facility], [address] [place] [id number] (Optometrist/Practice Owner: Kyra Tse MD; CLIA# [id number]). Professional interpretation was performed by PATIENT NAME: ZOEY HUGHES PATHOLOGY DATE OF : 49 REPORT #: [id number] PHYSICIAN: [facility] PCP: PAN SUTTON MD REPORT IS CONFIDENTIAL AND NOT TO BE RELEASED WITHOUT AUTHORIZATION [facility] [address] [place], [place] [address] Signed [facility], [facility], [address] [address] (CLIA# [id number]). Diagnostician: Ronen Gooden DO Pathologist Electronically Signed 01/23/2020 Copies: ~ PATIENT NAME: ZOEY HUGHES PATHOLOGY DATE OF : 49 REPORT #: [id number] PHYSICIAN: [facility] PCP: PAN SUTTON MD REPORT IS CONFIDENTIAL AND NOT TO BE RELEASED WITHOUT AUTHORIZATION
== END 2020-01-22 11:15 | disposition home or self-care (01) ==
LOC: ED 12:45 → MS 12:47
PROVIDERS: ADMIT Colon & Rectal Surgery; ATTEND Colon & Rectal Surgery
PROC: BF13YZZ Fluoroscopy of Gallbladder and Bile Ducts using Other Contrast (ICD-10-PCS; 2020-01-21)
PROC: 0FT44ZZ Resection of Gallbladder, Percutaneous Endoscopic Approach (ICD-10-PCS; principal; 2020-01-21 11:30)
DX: K80.12 Calculus of gallbladder with acute and chronic cholecystitis without obstruction (principal); K85.90 Acute pancreatitis without necrosis or infection, unspecified; I12.9 Hypertensive chronic kidney disease with stage 1 through stage 4 chronic kidney disease, or unspecified chronic kidney disease; N18.9 Chronic kidney disease, unspecified; K21.9 Gastro-esophageal reflux disease without esophagitis; R56.9 Unspecified convulsions; F20.0 Paranoid schizophrenia; F31.9 Bipolar disorder, unspecified; F17.210 Nicotine dependence, cigarettes, uncomplicated; Z88.0 Allergy status to penicillin; Z79.899 Other long term (current) drug therapy; Z20.828 Contact with and (suspected) exposure to other viral communicable diseases
CPT/HCPCS: 00790; 36415; 74300; 80053; 83690; 83735; 84100; 85025; 88304; 93005; 93010; 94760; 94762; 96365; 96366; 96367; 96368; 96372; 96375; 96376; 97110; 97116; 97162; 99284; C9113; C9803; G0378; J0171; J0330; J0696; J1100; J1170; J1650; J1885; J2001; J2405; J2550; J2704; J3010; J3480; J7030; J7060; J7121; Q9967; U0003

== ENCOUNTER 2020-11-25 05:55 | Day surgery (SDC) | payer MEDICARE, MEDICAID ==
[~2020-11-25] VITALS: Ht 165.1 cm; Wt 89.8 kg
[~2020-11-25 05:55] MED LIST changes: +HYDROCODON-ACE1 EAC8 PO; +PROAIR HFA8.5 GM INH; +TERBINAFINE HC250 MG PO
[2020-11-25] MEDS ORDERED: NITROSTAT0.4 MG SL (06:10)
--- NOTE | 2020-11-25 08:14 | NUR ---
11/25/20 0814 Paige Arreola 0804 TO PACU, ORAL AIRWAY IN PLACE. RESP EVEN/UNLABORED.
--- NOTE | 2020-11-25 08:45 | NUR ---
PT RESTING IN BED, SLOW TO RESPOND TO MY PRESENCE. SEEMED SOMEWHAT HESITANT TO RESPOND. HE DID SAY HE HAS HAD PREVIOUS SCOPE. OR STAFF WAITING, GAVE BLESSING, PT ROLLED OVER ON HIS SIDE. WILL FOLLOW
--- NOTE | 2020-11-25 10:15 | OR ---
[facility] [address], [place] [address] Signed DATE OF OPERATION: 11/25/2020 SURGEON: Zofia Nieto MD PREOPERATIVE DIAGNOSES: 1. Personal history of colonic polyps. 2. Diverticulosis. 3. Hemorrhoids. 4. Change in bowel habits with diarrhea following laparoscopic cholecystectomy last year. 5. Chronic intermittent rectal bleeding. POSTOPERATIVE DIAGNOSES: 1. 5 mm polypoid area on the ileocecal valve. 2. 4 mm polyp, proximal transverse colon. 3. 4 mm polyp, distal transverse colon. 4. 3 mm polyps x5 at 8 cm/rectum. 5. Minimal to moderate sigmoid diverticulosis. 6. Minimal to moderate internal and external hemorrhoids. PROCEDURE: Colonoscopy with hot biopsy. ESTIMATED BLOOD LOSS: None. INDICATIONS: Ruy is a 75-year-old gentleman asked to see me for a followup colonoscopy. He underwent both upper and lower endoscopies as far back as 2008. They were said to be unremarkable. He had a colonoscopy in [address] [facility]. He had a repeat colonoscopy in [address] [facility] with Dr. Red. He had a tubular adenomatous polyp at that time. He was said to have diverticulosis. He was asked to follow up in four years. I then saw him in October of 2019 for colonoscopy. We removed a tubular adenomatous polyp along with hyperplastic polyps and confirmed his diverticulosis. At that time, he was having some rectal bleeding and was guaiac positive. Of course, he is known to have his hemorrhoids. I had removed his gallbladder then in January 2020. He had a change in bowel habits with diarrhea for about nine months after the gallbladder was removed. He told me in the office he thinks that is better now. Of course, he sees blood intermittently in the stool from [id number]. He has no family history of colon cancer or polyps. In the office I had given him a pamphlet on colonoscopy. He recalls the test quite nicely. We had reviewed Electronically Signed By: ZOFIA NIETO MD 11/25/20 1015 PATIENT NAME: RUY HUGHES OPERATIVE REPORT DATE OF : 49 REPORT #: [id number] PHYSICIAN: ZOFIA NIETO MD PCP: PAN SUTTON MD REPORT IS CONFIDENTIAL AND NOT TO BE RELEASED WITHOUT AUTHORIZATION [facility] [address], [place] [address] Signed the risks including, but not limited to gas bloating, crampy abdominal pain, bleeding, perforation requiring surgery, and missed diagnosis. We also reviewed the need for monitored anesthesia care given his advanced medical issues. In fact he is an ASA 4. We had used monitored anesthesia care previously and that worked out quite nicely for him. He had expressed understanding and wished to proceed. PROCEDURE NOTE: Ruy was taken into our endoscopy suite and placed in the left lateral decubitus position. He was given monitored anesthesia care with propofol per our nurse patrol officer. A digital rectal exam was performed. He does have small bilateral external hemorrhoids. A good sphincter tone. His prostate is mild to moderate, indurated and enlarged. No specific dominant nodules that I could palpate. The adult colonoscope had been introduced and advanced up to the hepatic flexure. It took us a while to get through his somewhat tortuous sigmoid colon. It took some abdominal compression to get around hepatic flexure and down into the cecum itself. At that point, we could see the appendiceal orifice and the ileocecal valve. The scope was then slowly withdrawn. We took pictures throughout for photodocumentation. His prep was quite good. There was only a couple areas of thin liquid stool most of that was suctioned out. As we withdrew the scope, we saw a small polypoid area on the ileocecal valve and we took two biopsies and destroyed the rest of it with a hot cautery. The other polyps were easily removed with the help of a hot biopsy forceps. He does have minimal to moderate sigmoid diverticulosis. They are moderate in size, minimal to moderate in number, and scattered about. Again, he has very tiny hyperplastic appearing polyps in that rectum. Upon retroflexion of the scope, he does have minimal to moderate internal hemorrhoids as well. No evidence of any active bleeding currently. After this, the gas was suctioned out, colonoscope removed. Ruy tolerated procedure quite well. RECOMMENDATIONS: I will see Ruy back in my office in 7 to 14 days to review his results. Zofia Nieto MD ALB/MODL /[id number] Electronically Signed By: ZOFIA NIETO MD 11/25/20 1015 PATIENT NAME: RUY HUGHES OPERATIVE REPORT DATE OF : 49 REPORT #: [id number] PHYSICIAN: ZOFIA NIETO MD PCP: PAN SUTTON MD REPORT IS CONFIDENTIAL AND NOT TO BE RELEASED WITHOUT AUTHORIZATION [address], [place] [address] Signed cc: MD Pan Lucas MD Copies: ZOFIA NIETO MD, ROBERT D DMD ~ Electronically Signed By: ZOFIA NIETO MD 11/25/20 1015 PATIENT NAME: RUY HUGHES OPERATIVE REPORT DATE OF : 49 REPORT #: [id number] PHYSICIAN: ZOFIA NIETO MD PCP: PAN SUTTON MD REPORT IS CONFIDENTIAL AND NOT TO BE RELEASED WITHOUT AUTHORIZATION
--- NOTE | 2020-11-26 15:46 | PATH ---
[facility] [address] [place], [place] [address] Signed SPECIMEN(S): A ILEOCECAL VALVE POLYP SPECIMEN(S): B PROXIMAL TRANSVERSE COLON POLYP SPECIMEN(S): C DISTAL TRANSVERSE COLON POLYP SPECIMEN(S): D POLYP AT 8 CM SPECIMEN SOURCE: A. ILEOCECAL VALVE POLYP B. PROXIMAL TRANSVERSE COLON POLYP C. DISTAL TRANSVERSE COLON POLYP D. POLYP AT 8 CM CLINICAL HISTORY: Colonoscopy. Rectal hemorrhage, personal history of colon polyps, hemorrhoids, diarrhea, diverticulosis, change in bowel habits. Postop Dx: Internal and external hemorrhoids, diverticulosis, colon polyps. MICROSCOPIC DESCRIPTION: Histologic sections of all submitted blocks are examined by light microscopy. These findings, together with the gross examination, support the pathologic diagnosis. FINAL PATHOLOGIC DIAGNOSIS: A. Ileocecal valve, polypectomy: - Cauterized fragments of ileocolonic mucosa with no significant pathologic changes. B. Colon, proximal transverse, polypectomy: - Tubular adenoma. C. Colon, distal transverse, polypectomy: - Colonic mucosa with no significant pathologic changes. D. Colon, 8 cm, polypectomy: - Hyperplastic polyp. BRP:caw:C2NR GROSS DESCRIPTION: Four specimens are received in four containers, labeled "MK." A. The specimen, labeled "MK, ileocecal valve polyp," is received in formalin and consists of three chapa soft tissue fragments that measure 0.2-0.3 cm in greatest dimension. The specimen is entirely submitted in cassette (A1). B. The specimen, labeled "MK, proximal transverse colon polyp," is received in formalin and consists of two chapa soft tissue fragments that measure 0.2 cm in PATIENT NAME: ZOEY HUGHES PATHOLOGY DATE OF : 49 REPORT #: [id number] PHYSICIAN: KO[facility] PATH[facility] PCP: PAN SUTTON MD REPORT IS CONFIDENTIAL AND NOT TO BE RELEASED WITHOUT AUTHORIZATION [facility] [address], [place] [address] Signed greatest dimension. The specimen is entirely submitted in cassette (B1). C. The specimen, labeled "MK, distal transverse colon polyp," is received in formalin and consists of one chapa soft tissue fragment that measures 0.2 cm in greatest dimension. The specimen is entirely submitted in cassette (C1). D. The specimen, labeled "MK, colon polyp at 8 cm," is received in formalin and consists of five chapa soft tissue fragments that measure 0.2 cm in greatest dimension. The specimen is entirely submitted in cassette (D1). JS (under the direct supervision of a pathologist) The Gross Description was prepared using a voice recognition system. The report was reviewed for accuracy; however, sound-alike word errors, addition and/or deletions may occur. If there is any question about this report, please contact Client Services. PERFORMING LABORATORY: The technical component was performed by [facility], [address] [place] [id number] (Ceo & Board Director: Kyra Tse MD; CLIA# [id number]). Professional [facility], [address] [address] (CLIA# [id number]). Diagnostician: Jaziel Batista MD Pathologist Electronically Signed 11/26/2020 Copies: ~ PATIENT NAME: ZOEY HUGHES PATHOLOGY DATE OF : 49 REPORT #: [id number] PHYSICIAN: [facility] PCP: PAN SUTTON MD REPORT IS CONFIDENTIAL AND NOT TO BE RELEASED WITHOUT AUTHORIZATION
== END 2020-11-25 09:00 | disposition home or self-care (01) ==
LOC: DS 05:55 → OPS 05:55 → DS 06:45 → OPS 06:45
PROVIDERS: ATTEND Colon & Rectal Surgery
PROC: 0DBL8ZX Excision of Transverse Colon, Via Natural or Artificial Opening Endoscopic, Diagnostic (ICD-10-PCS; 2020-11-25)
PROC: 0DBP8ZX Excision of Rectum, Via Natural or Artificial Opening Endoscopic, Diagnostic (ICD-10-PCS; 2020-11-25)
PROC: 0DBC8ZX Excision of Ileocecal Valve, Via Natural or Artificial Opening Endoscopic, Diagnostic (ICD-10-PCS; principal; 2020-11-25 06:45)
DX: D12.3 Benign neoplasm of transverse colon (principal); K62.1 Rectal polyp; K57.30 Diverticulosis of large intestine without perforation or abscess without bleeding; K64.8 Other hemorrhoids; K64.4 Residual hemorrhoidal skin tags; I10 Essential (primary) hypertension; K21.9 Gastro-esophageal reflux disease without esophagitis; N40.1 Benign prostatic hyperplasia with lower urinary tract symptoms; R33.8 Other retention of urine; F17.210 Nicotine dependence, cigarettes, uncomplicated; I25.2 Old myocardial infarction; F20.0 Paranoid schizophrenia; Z86.718 Personal history of other venous thrombosis and embolism; Z87.19 Personal history of other diseases of the digestive system; Z88.0 Allergy status to penicillin; Z90.49 Acquired absence of other specified parts of digestive tract
CPT/HCPCS: J2704; J7121

== ENCOUNTER 2022-05-25 05:55 | Day surgery (SDC) | payer MEDICARE, MEDICAID ==
[2022-05-18 09:13] VITALS: BP 142/75
[~2022-05-25] VITALS: Ht 165.1 cm; Wt 86.4 kg
[~2022-05-25 05:55] MED LIST changes: +ATORVASTATIN CA20 MG PO; +AZITHROMYCIN250 MG PO; +INCRUSE ELLI62.5 MCG INH; +IPRAT-ALBUT 0.5-3 ML INH; +NITROSTAT0.4 MG SL; +ONDANSETRON ODT4 MG PO; +PREDNISONE20 MG PO
[2022-05-25 06:15] VITALS: BP 160/80
--- NOTE | 2022-05-25 08:07 | NUR ---
CONNECTED WITH PT HE WAS HEADED TO OR-GAVE ENCOURAGEMENT. WILL FOLLOW
--- NOTE | 2022-05-25 09:02 | NUR ---
05/25/22 0902 Elayne Joyner SN 0854 PATIENT ARRIVES TO PACU UNRESPONSIVE TO PAINFUL STIMULI. REQUIRES JAW THRUST AND ORAL AIRWAY TO MAINTAIN PATENT AIRWAY. RESP EVEN AND UNLABORED WITH INTERVENTION. MASK AT 10 LITERS DECREASED TO 6. 0901 PATIENT CONTINUES TO UNRESPONSIVE TO PAIN. ORAL AIRWAY IN PLACE. NO LONGER REQUIRED JAW THRUST. RESP EVEN AND UNLABORED WITH INTERVENTION. MASK AT 6 LITERS.
[2022-05-25 10:10] VITALS: BP 147/70
--- NOTE | 2022-05-25 10:19 | NUR ---
1010: PT ARRIVES TO DS RM 7 FROM PACU VIA STRETCHER AWAKE. PT HAS OXYMASK IN PLACE ON 2L, SATS GREATER THAN 94% ON RA. PT DENIES ANY PAIN IN LEFT GROIN AND STATES THAT NAUSEA HAS DISSIPATED. PT PROVIDED WATER AND TAKES SMALL SIPS. CONT PULSE OXIMETER LEFT IN PLACE PT SLIGHTLY DROWSY AND CLOSES EYES WITH NO VERBAL STIMULATION. [facility] SPD MANAGER, SHOBHA FOLLOWING PT TODAY. CALL LIGHT WITHIN REACH, DC CRITERIA EXPLAINED TO PT.
--- NOTE | 2022-05-25 10:55 | OR ---
[facility] [address], [place] [address] Signed DATE OF OPERATION: 05/25/2022 SURGEON: Zofia Emery MD PREOPERATIVE DIAGNOSIS: Nonreducible left inguinal hernia. POSTOPERATIVE DIAGNOSIS: Nonreducible left indirect inguinal hernia. PROCEDURE: Left inguinal Bassini herniorrhaphy. ESTIMATED BLOOD LOSS: None. INDICATIONS: Ruy is a 76-year-old gentleman, asked to see me for his symptomatic left inguinal hernia. He said he was lifting a table back in September of 2021. He actually broke his back, but also noticed swelling in his left groin. He said his back has now healed much better. However, he feel the swelling in his groin clear down to the top of the scrotum. He had been to his primary care provider. An ultrasound on February 09, 2022 confirmed the fat containing left inguinal hernia. He said he still drives and gets himself around town. He also has to take the trash out and so forth. He said he has been feeling the swelling and pain even with walking. He had been asked to see me with respect to the above. He had a cough when he came to my office, but he said that has resolved. His chest x-ray was good. Because of his body habitus, it is a little difficult to actually feel this hernia. Particularly when the hernia has contained fat it is even more difficult to feel. Although we could feel something full coming down near the top of the testicle. Both testicles were descended and unremarkable. In the office, I gave him a brochure on hernias. We looked at it page by page. I circled the sections relevant to him. We had reviewed primary suture repair versus a mesh repair. He understands the expected intraop and postop course. There is risk to surgery including, but not limited to bleeding, infection, scarring, change in contour of the skin, damage to nerves, ischemic orchitis, recurrent hernias and chronic pain. He had expressed understanding and wished to proceed. DESCRIPTION OF PROCEDURE: I met with Ruy in our preop area. He deals with intermittent fungal infections in both groins, particularly underneath near the scrotum. He normally uses a little Electronically Signed By: ZOFIA EMERY MD 05/25/22 1055 PATIENT NAME: RUY HUGHES OPERATIVE REPORT DATE OF : 49 REPORT #: [id number] PHYSICIAN: ZOFIA EMERY MD PCP: PAN SUTTON MD REPORT IS CONFIDENTIAL AND NOT TO BE RELEASED WITHOUT AUTHORIZATION [facility] [address] [place] [id number] Signed cornstarch. It was mild this morning. We are going to have him go home with nystatin cream to be used twice a day until the tube is empty. We applied some to his groin area after the procedure as well. We both agreed it was his left groin and we marked that appropriately. After this, he was taken to the operating room and placed in the supine position under general endotracheal tube anesthesia. He was given preoperative antibiotics along with subcutaneous heparin. SCDs were utilized. He was then prepped and draped in the usual sterile fashion. We made a standard incision over the left groin, carried down through the tissues bluntly and with the cautery. The external oblique fascia was opened along its length and developed medially and laterally. We could easily see the fat coming out of the external ring along with his cord structures. On inspection, he had very little in the direct space. He had preperitoneal fat just bulging through that area. We used a Ethel drain, encircled the cord structures at the level of the pubic tubercle. With blunt dissection, we carefully examined the anterior medial side of his cord structures near the deep ring. We found that he had a long amount of fat coming through the deep ring all the way down into the top of his rectum. It was carefully dissected away from the cord structures. Back at the deep ring, then the large cord lipoma was suture ligated with 2-0 PDS suture. It was amputated and passed off the field. The stump was allowed to retract up into the abdomen. I then grasped the conjoined tendon with an Allis clamp and it came over very easily without tension to his inguinal ligament. Because of the rather thin direct space, we decided we would perform a standard Bassini inguinal herniorrhaphy. We used #1 Prolene interrupted starting at the pubic tubercle and worked our way up to the deep ring. We could just pass a Pean clamp and open it about 3 mm. There was no tension on the repair. Therefore, no relaxing incision was required. We had protected the iliohypogastric and ilioinguinal nerves throughout the case. Local anesthetic was then injected into the wound. The wound was irrigated and suctioned out until clear. We closed the external oblique fascia over the repair with a running 2-0 PDS suture. The Fatou's fascia was reapproximated with a running 3-0 Monocryl suture. The dermis was reapproximated with interrupted 3-0 subcuticular Monocryl sutures. The skin edges were reapproximated with a running 5-0 fast absorbing plain gut suture. was removed and we applied the nystatin cream to both groins particularly down between the scrotum and his proximal thigh. Dry gauze and tape were then applied to the incision. He was awakened from his anesthesia, extubated in the OR, and taken to recovery room in stable condition. Zofia Emery MD ALB/MODL Electronically Signed By: ZOFAI EMERY MD 05/25/22 1055 PATIENT NAME: RUY HUGHES OPERATIVE REPORT DATE OF : 49 REPORT #: [id number] PHYSICIAN: ZOFIA EMERY MD PCP: PAN SUTTON MD REPORT IS CONFIDENTIAL AND NOT TO BE RELEASED WITHOUT AUTHORIZATION [address] [address] Signed /[id number] cc: MD Pan Lucas MD Copies: ZOFIA EMERY MD, ROBERT D DMD ~ Electronically Signed By: ZOFIA EMERY MD 05/25/22 1055 PATIENT NAME: RUY HUGHES JESS OPERATIVE REPORT DATE OF : 49 REPORT #: [id number] PHYSICIAN: ZOFIA EMERY MD PCP: PAN SUTTON MD REPORT IS CONFIDENTIAL AND NOT TO BE RELEASED WITHOUT AUTHORIZATION
[2022-05-25 11:23] VITALS: BP 161/80
--- NOTE | 2022-05-25 12:09 | NUR ---
1020: PT PROVIDED APPLESAUCE AND ABLE TO TOLERATE WITH NO NAUSEA. 1045: PT USES CALL LIGHT AND REQUESTS URINAL. PT ABLE TO VOID 850 MLS YELLOW URINE WITH NO PROBLEMS. 1120: DC CRITERIA MET AT THIS TIME. PT RATES PAIN 6/10 IN LEFT GROIN AND OFFERED PAIN MEDICATION. PT DENIES PAIN MEDICATION AND STATES HE WOULD LIKE TO GO HOME AND WILL TAKE TYLENOL ONCE HOME. PT EDUCATED ABOUT PAIN AND THAT WITH MOVEMENT/GETTIN DRESSED IT WOULD BE PAINFUL, PT CONT TO DENY PAIN MEDICATION. PT DRESSES SELF AND THIS RN ASSISTS WITH SHOES. NEIGHBORJF CALLED FOR SAFE RIDE HOME WHO STATES HE WILL HE HERE IN 10 MINUTES. 1140: DC INSTRUCTIONS PRESENTED VERBALLY AND WRITTEN, PT AWARE OF NEED TO TAKE HARD SCRIPT TO PHARMACY TO HAVE FILLED, NEIGHBOR ALSO AWARE WHO STATES HE CAN DROP IT OFF FOR PT. PT DC FROM DS RM 7 VIA WC TO JF WAITING AT HOSPITAL ENTRANCE TO HOME.
== END 2022-05-25 11:49 | disposition home or self-care (01) ==
LOC: DS 05:55
PROVIDERS: ATTEND Colon & Rectal Surgery
DX: K40.30 Unilateral inguinal hernia, with obstruction, without gangrene, not specified as recurrent (principal); D17.6 Benign lipomatous neoplasm of spermatic cord; R19.7 Diarrhea, unspecified; I10 Essential (primary) hypertension; K21.9 Gastro-esophageal reflux disease without esophagitis; E78.2 Mixed hyperlipidemia; Z88.0 Allergy status to penicillin; Z79.899 Other long term (current) drug therapy; Z20.822 Contact with and (suspected) exposure to COVID-19
CPT/HCPCS: 00830; J0330; J0690; J1100; J1160; J1644; J1885; J2250; J2405; J2704; J2765; J3010; J7121

== ENCOUNTER → 2022-08-14 | Emergency (ER) | payer MEDICARE, OTHER ==
[~2022-08-14] VITALS: Ht 165.1 cm; Wt 90.7 kg
--- OUTSIDE RECORDS SUMMARY | 2022-08-14 14:51 | XMS ---
PreManage Notification: ZOEY HUGHES Security Net Lead Developer Events No recent Security Events currently on file CRITERIA MET - Group Notification CARE PROVIDERS [facility] Current PHONE: [phone] Vincenzo Singh Orthopaedic Surgery 03/02/2018-Current PHONE: [phone] Lliiya has no Care Guidelines for this patient. Emy VISIT COUNT (12 MO.) Daksha Bran TOTAL 3 NOTE: Visits indicate total known visits. ED/UCC VISIT TRACKING (12 MO.) 08/14/2022 14:49 [facility] TYPE: Emergency COMPLAINT: - KNEE PAIN 05/21/2022 12:26 [facility] TYPE: Emergency COMPLAINT: - DIZZY, NAUSEA. DIAGNOSES: - Allergy status to penicillin - Dizziness and giddiness - Essential (primary) hypertension - Nicotine dependence, unspecified, uncomplicated - Other usp (current) drug therapy 04/16/2022 21:20 [facility] TYPE: Emergency COMPLAINT: - SOB AND CANT SLEEP DIAGNOSES: - Allergy status to penicillin - Chronic kidney disease, unspecified - Chronic obstructive pulmonary disease with (acute) exacerbation - Contact with and (suspected) exposure to COVID-19 - Hypertensive chronic kidney disease with stage 1 through stage 4 chronic kidney disease, or unspecified chronic kidney disease - Nicotine dependence, unspecified, uncomplicated - Other terminal operator (current) drug therapy - Shortness of breath INPATIENT VISIT TRACKING (12 MO.) No inpatient visits to display in this time frame [email or web address]
[2022-08-14 20:36] VITALS: BP 161/92
== END ==
LOC: ED 14:49
DX: M25.561 Pain in right knee (principal); J44.9 Chronic obstructive pulmonary disease, unspecified; I12.9 Hypertensive chronic kidney disease with stage 1 through stage 4 chronic kidney disease, or unspecified chronic kidney disease; N18.9 Chronic kidney disease, unspecified; F17.200 Nicotine dependence, unspecified, uncomplicated; Z88.0 Allergy status to penicillin; Z79.899 Other long term (current) drug therapy
CPT/HCPCS: 73560; 93970; 99284 25

== ENCOUNTER 2023-08-04 06:34 | Day surgery (SDC) | payer MEDICARE, MEDICAID ==
[2023-08-02 09:49] VITALS: BP 146/82
[~2023-08-04] VITALS: Ht 165.1 cm; Wt 80.0 kg
[~2023-08-04 06:34] MED LIST changes: +INGREZZA40 MG PO; +K-TAB ER20 MEQ PO; +LACTATED RINGER'S 1,000 ML IV SCH; +MULTIPLE VITAM1 EAC2 PO; +SEROQUEL50 MG PO
[2023-08-04 06:57] VITALS: BP 152/85
[2023-08-04] MEDS ORDERED: IBLOOD GLUCOSE TEST STRIP 1 EA TEST VI PRN (07:00)
[2023-08-04] MEDS ORDERED: CEFAZOLIN SODIUM 2 GM/20 ML SYR IV SCH (07:00)
[2023-08-04] MEDS ORDERED: LIDOCAINE HCL 1% 5 ML SDV INJ ONE (07:00)
[2023-08-04] MEDS ORDERED: HEParin SOD (PORCINE) 5,000 UNIT/0.5 ML SYR SUB-Q SCH (07:00)
[2023-08-04] MEDS ORDERED: ALLERGY RELIEF25 M1 PO (07:17)
[2023-08-04] MEDS ORDERED: NITROGLYCERIN0.4 MG SL (07:18)
[2023-08-04] MEDS ORDERED: POTASSIUM CHLO10 ME1 PO (07:19)
[2023-08-04 07:53] LABS: BASOPHILS 0.5 % (0-2); BASOPHILS, ABSOLUTE 0 %; EOSINOPHILS 2.1 % (0-6); EOSINOPHILS, ABSOLUTE 0.1; HEMOGLOBIN 15.5 g/dL (12.0-18.0); LYMPHOCYTES 27.4 % (24-44); LYMPHOCYTES, ABSOLUTE 1.5; MCH 30.9 (27-36); MCHC 33.6 g/dl (30-36); MCV 91.8 fl (81-99); MONOCYTES 7.8 % (0-12); MONOCYTES, ABSOLUTE 0.4; NEUTROPHILS 62.2 % (39-80); NEUTROPHILS, ABSOLUTE 3.4; PLATELET COUNT 158 K/uL (140-440); RBC 5.01 M/ul (4.3-5.7); RDW 13.7 (10.5-15.0)
[2023-08-04 08:05] LABS: ANION GAP 10.8 (7-21); BUN/CREATININE RATIO 18.08 (6.0-28.6); CALCIUM 9.2 mg/dL (8.5-10.1); CREATININE, SERUM 0.94 mg/dL (0.70-1.30); POTASSIUM 3.8 mmol/L (3.5-5.1)
[2023-08-04] MEDS ORDERED: propofoL 200 MG/20 ML VIAL ONE (09:02)
[2023-08-04] MEDS ORDERED: ACETAMINOPHEN 1,000 MG/100 ML VIAL ONE (09:02)
[2023-08-04] MEDS ORDERED: LIDOCAINE HCL 2% 5 ML SDV ONE (09:02)
[2023-08-04] MEDS ORDERED: ondansetron HCL 4 MG/2 ML VIAL ONE (09:02)
[2023-08-04] MEDS ORDERED: fentaNYL citrate 100 MCG/2 ML VIAL ONE (09:02)
[2023-08-04] MEDS ORDERED: DEXAMETHASONE SOD PHOS 4 MG/ML VIAL ONE (09:02)
[2023-08-04] MEDS ORDERED: ePHEDrine sulfate 50 MG/ML AMP ONE (09:20)
[2023-08-04] MEDS ORDERED: NALOXONE HCL 0.4 MG SYR IV PRN (10:00)
[2023-08-04] MEDS ORDERED: HYDROCODONE/ACETA 5/325 TAB PO PRN (10:00)
[2023-08-04] MEDS ORDERED: PROCHLORPERAZINE EDISYLATE 10 MG/2 ML VIAL IV PRN (10:00)
[2023-08-04] MEDS ORDERED: HYDROmorphone HCL 1 MG/ML SYR IV PRN (10:00)
[2023-08-04] MEDS ORDERED: ondansetron HCL 4 MG/2 ML VIAL IV PRN (10:00)
[2023-08-04 10:24] VITALS: BP 136/70
--- NOTE | 2023-08-04 10:24 | NUR ---
PT ARRIVED BACK TO FROM PACU AT APPROX 1024. REPORT RECEIVED WITH PSYCHIATRIC NURSE PRACTITIONER AND DRESSING TO R TEMPORAL SURGICAL INCISION VISULAIZED. DRSG IS CDI. PT DENIES PAIN WHEN ASKED, WELL NAUSEA. IV SITE ASSESSED, PATENT. PT IA A&O TO HIS BASELINE. PT HAS DELUSIONAL D/O AT BASELINE. PT PROVIDED ICE WATER, PUDDING, AND CRACKERS. VSS. CALL LIGHT WITHIN REACH. ICE PACK TO SURGICAL INCISION PER ORDERS. BILAT RAILS IN PLACE FOR SAFETY. BED IN LOW POSITION WITH WHEELS LOCKED. PERSONAL ITEMS WITHIN REACH. ALL QUESTIONS ANSWERED.
[2023-08-04 11:13] VITALS: BP 150/76
--- NOTE | 2023-08-04 11:13 | OR ---
[facility] [address], [place] [address] Signed DATE OF OPERATION: 08/04/2023 SURGEON: Zofia Emery MD PREOPERATIVE DIAGNOSIS: Right moravian subcutaneous mass (3 x 2.5 cm). POSTOPERATIVE DIAGNOSIS: Right moravian subcutaneous mass (2 cm). PROCEDURE: Excision of right moravian subcutaneous mass. ESTIMATED BLOOD LOSS: None. INDICATIONS: Ruy is a 77-year-old gentleman with significant mental health issues. We have helped Ruy over the years. He has been asked to see me again for 3 x 2.5 cm subcutaneous mass over his right moravian. He thinks it has been increasing in size. It is in between his eye and his hairline. He said he would like to have it removed. His primary care provider asked him to come by my office. In the office, I explained to Ruy that it would require curvilinear incision over that area to get it out completely. We will be able to close that primarily. He would be able to go home on the same day. We would send the tissue off for pathologic review. He understands there is risk including, but not limited to bleeding, infection, scarring, change in contour of the skin as well as recurrent masses in the same or other locations. He had expressed understanding and wished to proceed. PROCEDURE IN DETAIL: I met with Sheela in our preop area. We both agreed on the subcutaneous mass in the right moravian. We marked it appropriately. After that, Ruy was taken into the operating room and placed in the supine position under general LMA anesthesia. He was given preoperative antibiotics along with subcutaneous heparin. SCDs were utilized. He was prepped and draped in the usual sterile fashion. We made a curvilinear incision over the lesion and went down and around the lesion carefully with our cautery. It clinically appears to be a lipoma, probably 2 cm in diameter. We injected local anesthetic into the wound. The wound was irrigated and suctioned out until clear. We closed the dermis with interrupted 3-0 subcuticular Monocryl sutures. The skin edges were reapproximated with a running 5-0 fast absorbing plain gut suture. Dry gauze and Electronically Signed By: ZOFIA EMERY MD 08/04/23 1113 PATIENT NAME: RUY HUGHES OPERATIVE REPORT DATE OF : 49 REPORT #: [id number] PHYSICIAN: ZOFIA EMERY MD PCP: PAN SUTTON MD REPORT IS CONFIDENTIAL AND NOT TO BE RELEASED WITHOUT AUTHORIZATION [address] [address] Signed tape was applied. Ruy was awakened from his anesthesia, extubated in the OR, and taken to recovery room in stable condition. Zofia Emery MD ALB/MODL /[id number] cc: MD Zofia Camp MD Copies: PAN SUTTON DMD, ANDREW L MD ~ Electronically Signed By: ZOFIA EMERY MD 08/04/23 1113 PATIENT NAME: RUY HUGHES JESS OPERATIVE REPORT DATE OF : 49 REPORT #: [id number] PHYSICIAN: ZOFIA EMERY MD PCP: PAN SUTTON MD REPORT IS CONFIDENTIAL AND NOT TO BE RELEASED WITHOUT AUTHORIZATION
--- NOTE | 2023-08-04 11:20 | NUR ---
[id number] LIGHT ANSWERED. PT REPORTS NEED TO USE RESTROOM. IV SL'D. PT ASSISTED TO SITTING POSITION ON EOB. PT THEN ASSISTED TO STANDING POSITION AND WAS ABLE TO AMBULATE TO RESTROOM [facility] WITH NURSE SBA. PT ABLE TO VOID 350 ML OF CLEAR, YELLOW URINE. PT ASSISTED BACK TO ROOM WITH NURSE SBA. 1113-ROUTINE REASSESSMENT COMPLETED. VSS. IV SITE ASSESSED. PT DENIES PAIN AND NAUSEA WHEN ASKED. DRSG TO R TEMPORAL SURGICAL WOUND REMAINS CDI. PT HAS TOLERATED PO FOOD/FLUIDS WITHOUT ISSUES NOTED/REPORTED. PT REMAINS AA0 TO BASELINE. PT WITH COLD THERAPY TO SURGICAL SITE. RES RESTING IN BED WITH CALL LIGHT WITHIN REACH AND BED IN LOW POSITION WITH WHEELS LOCKED. ALL QUESTIONS ANSWERED.
--- NOTE | 2023-08-04 11:50 | NUR ---
INTO PTS ROOM FOR DISCHARGE TEACHING. POST-OP APPT FOR 08/20/26 AT 1300 GIVEN TO PT. REVIEW DRSG ORDERS AND COLD THERAPY USE, ECT WITH PT. PT VERBALIZED UNDERSTANDING AND DENIES ANY QUESTIONS WHEN ASKED. PTS RIDE CALLED TO NOTIFY OF IMPENDING DISCHARGE. PT WITH CALL LIGHT WITHIN REACH AND HIS BAG OF CLOTHES AND OTHER PERSONAL BELONGINGS PLACED ON HIS BED FOR HIM TO DRESS.
[2023-08-04 12:05] VITALS: BP 143/87
--- NOTE | 2023-08-04 12:05 | NUR ---
[id number] PTS ROOM FOR ROUTINE REASSESSMENT. PT HAS GOTTEN DRESSED. VS TAKEN. PT CONT TO DENY PAIN OR N/V WHEN ASKED. DRSG TO R TEMPORAL AREA REMAINS CDI. PT HAS MET DC CRITERIA. MENTATION IS BACK AT BASELINE. 1205-IV REMOVED AND TIP OBSERVED TO BE ITNACT. PRESSURE DRSG APPLIED USING GAUZE AND COBAN. PT RIDE ARRIVED AND IS PULLING CAR AROUND TO FRONT OF HOSPITAL. PT DENIES ANY FURTHER NEEDS OR QUESTIONS.
--- NOTE | 2023-08-04 12:10 | NUR ---
PT DISCHARGE FROM DS VIA WC TO PASSENGER SIDE OF FRIENDS VEHICLE. ALL QUESTIONS ANSWERED. PT TOOK ALL PERSONAL BELONGINGS WITH HIM.
[2023-08-04 12:32] VITALS: BP 122/78
--- NOTE | 2023-08-04 12:37 | NUR ---
08/04/23 1237 Mariscal,Zenaida Galeano 0950: PATIENT ARRIVED TO PACU SLEEPING. BREATHING SPONTANEOUSLY WITH 02 MASK ON. 1000: PATIENT AWAKE AND TALKING. DENIES PAIN. 1024: PATIENT TRANSFERRED BACK TO DAY SURGERY ROOM. PATIENT TOLERATED TRANSFER WELL. REPORT GIVEN TO CHRIS RN.
--- NOTE | 2023-08-11 17:02 | PATH ---
[facility] [address] [facility] [place], [place] [address] Signed SPECIMEN(S): A RIGHT PRESYBETERIAN MASS SPECIMEN SOURCE: A. RIGHT PRESYBETERIAN MASS CLINICAL HISTORY: Subcutaneous mass. FINAL PATHOLOGIC DIAGNOSIS: Subcutaneous right mormon mass: - [place] lobulated adipose tissue consistent with lipoma. JVR:clv MICROSCOPIC EXAMINATION: Histologic sections of all submitted blocks are examined by light microscopy. These findings, together with the gross examination, support the pathologic diagnosis. GROSS DESCRIPTION: The specimen, labeled and designated "Radha, M, " and designated on the requisition "subcutaneous mass right mormon," is received in formalin and consists of a 2 gram portion of yellow-chapa adipose tissue that is 2.3 x 1.6 x 1.4 cm. The specimen displays a pink, shaggy external surface. The tissue is inked and serially sectioned to reveal a yellow homogeneous cut surface. Discharge Planner sections are submitted in (A1). FB (under the direct supervision of a pathologist) The Gross Description was prepared using a voice recognition system. The report was reviewed for accuracy; however, sound-alike word errors, addition and/or deletions may occur. If there is any question about this report, please contact Client Services. ADDITIONAL NOTES: Immunohistochemical and/or in situ hybridization studies if performed in this case included appropriate positive controls that reacted as expected. This test was developed and its performance characteristics determined by [facility]. It has not been cleared or approved by the U.S. Food and Drug Administration. The FDA has determined that such clearance or approval is not necessary. This test is used for clinical purposes. It should not be regarded as investigational or for research. [facility] is certified under the PATIENT NAME: ZOEY HUGHES PATHOLOGY DATE OF : 49 REPORT #: [id number] PHYSICIAN: KOLE TEJEDA PCP: PAN SUTTON MD REPORT IS CONFIDENTIAL AND NOT TO BE RELEASED WITHOUT AUTHORIZATION [facility] [address] [place], [place] [address] Signed Clinical Laboratory Improvement Amendments of 1988 (CLIA) as qualified to perform high complexity clinical laboratory testing. PERFORMING LABORATORY: Technical component was performed by [facility], [address] [place] [address] (CLIA# [id number]). Professional interpretation was performed by [facility] - [facility], [address] [place] [id number] (CLIA#: [id number]). Diagnostician: Samy Menendez MD Pathologist Electronically Signed 08/11/2023 Copies: ~ PATIENT NAME: ZOEY HUGHES PATHOLOGY DATE OF : 49 REPORT #: [id number] PHYSICIAN: KOLE TEJEDA PCP: PAN SUTTON MD REPORT IS CONFIDENTIAL AND NOT TO BE RELEASED WITHOUT AUTHORIZATION
== END 2023-08-04 12:10 | disposition home or self-care (01) ==
LOC: DS 06:34
PROVIDERS: Nurse Anesthetist, Certified Registered; ATTEND Colon & Rectal Surgery
PROC: 0JB10ZZ Excision of Face Subcutaneous Tissue and Fascia, Open Approach (ICD-10-PCS; principal; 2023-08-04 09:00)
DX: R22.0 Localized swelling, mass and lump, head (principal); F31.81 Bipolar II disorder; E78.2 Mixed hyperlipidemia; J44.9 Chronic obstructive pulmonary disease, unspecified
CPT/HCPCS: 00300; 36415; 80048; 85025; 88305; J0131; J0690; J1100; J1644; J2001; J2405; J2704; J3010; J7121

== ENCOUNTER 2024-10-17 11:55 | Emergency (ER) | payer MEDICARE, OTHER ==
[~2024-10-17] VITALS: Ht 165.1 cm; Wt 98.9 kg
[~2024-10-17 11:55] MED LIST changes: +ALLERGY RELIEF25 M1 PO; -LACTATED RINGER'S 1,000 ML IV SCH; +NITROGLYCERIN0.4 MG SL; +POTASSIUM CHLO10 ME1 PO; +PREDNISOLONE ACE5 M1 OP
--- OUTSIDE RECORDS SUMMARY | 2024-10-17 12:00 | XMS ---
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 Emy VISIT COUNT (12 MO.) Tony Bran TOTAL 1 NOTE: Visits indicate total known visits. ED/UCC VISIT TRACKING (12 MO.) 10/17/2024 11:[address] [facility] [place] TYPE: Emergency COMPLAINT: - CHEST PAIN INPATIENT VISIT TRACKING (12 MO.) No inpatient visits to display in this time frame [email or web address]
[2024-10-17 12:13] LABS: BASOPHILS 0.3 % (0.2-1.2); EOSINOPHILS 1.7 % (0.8-7.0); LYMPHOCYTES 32.2 % (21.8-53.1); MCH 31.8 PG (25.7-32.2); MCHC 33.7 g/dL (32.3-36.5); MCV 94.4 fL (79.0-92.2); MONOCYTES 8.6 % (5.3-12.2); NEUTROPHILS 56.9 % (34.0-67.9); RBC 5.00 M/uL (4.63-6.08)
[2024-10-17] MEDS ORDERED: MORPHINE SULFATE 4 MG/ML VIAL IV ONE (12:15)
[2024-10-17] MEDS ORDERED: ASPIRIN 81 MG CHEW PO ONE (12:15)
[2024-10-17 12:55] LABS: ALT (SGPT) 35.0 U/L (14-59); GLOMERULAR FILTRATION RATE,EST 88.0 mL/min (>60); PROTEIN, TOTAL 7.4 g/dL (6.4-8.2); UREA NITROGEN 13.0 mg/dL (7-18)
[2024-10-17 13:41] LABS: AST (SGOT) 38.0 U/L (15-37)
[2024-10-17 15:37] VITALS: BP 157/81
--- NOTE | 2024-10-18 19:50 | EKG ---
[facility] [address] [facility] [place] [address] Signed Sinus bradycardia Otherwise normal ECG When compared with ECG of 08-JUN-2023 10:34, No significant change was found Confirmed by Marquis Bassett DO ([id number]) on 10/18/2024 7:50:00 PM Electronically Signed By: MARQUIS BASSETT DO 10/18/24 1950 PATIENT NAME: ZOEY HUGHES JESS Electrocardiogram DATE OF : 49 PHYSICIAN: MARQUIS BASSETT DO REPORT #: [id number] REPORT IS CONFIDENTIAL AND NOT TO BE RELEASED WITHOUT AUTHORIZATION
== END 2024-10-17 15:39 | disposition home or self-care (01) ==
LOC: ED 11:55
PROVIDERS: Emergency Medicine
DX: R07.9 Chest pain, unspecified (principal); N20.0 Calculus of kidney; K57.30 Diverticulosis of large intestine without perforation or abscess without bleeding; I12.9 Hypertensive chronic kidney disease with stage 1 through stage 4 chronic kidney disease, or unspecified chronic kidney disease; N18.9 Chronic kidney disease, unspecified; J44.9 Chronic obstructive pulmonary disease, unspecified; F17.200 Nicotine dependence, unspecified, uncomplicated; Z88.0 Allergy status to penicillin; Z79.899 Other long term (current) drug therapy
CPT/HCPCS: 36415; 71045; 74177; 80053; 83735; 84484; 85025; 93005; 93010; 96374; 96375; 99285-25; A9270; J2270; J2405; Q9967

== ENCOUNTER 2024-11-11 05:32 | Day surgery (SDC) | payer MEDICARE, OTHER ==
[~2024-11-11] VITALS: Ht 165.1 cm; Wt 86.0 kg
[2024-11-11] VITALS (9 sets, daily range): BP systolic 119–169; BP diastolic 63–87
[~2024-11-11 05:32] MED LIST changes: +CENTANY AT1 EACH TOP; +IVIZIA 0.5% EYE5 ML OU; +KLAYESTA15 GM TOP; +LACTATED RINGER'S 1,000 ML IV SCH; +TYLENOL EXTRA500 MG PO
[2024-11-11] MEDS ORDERED: CEFAZOLIN SODIUM 2 GM in SODIUM CHLORIDE 0.9% 100 ML IV SCH (07:00)
[2024-11-11] MEDS ORDERED: LIDOCAINE HCL 1% 5 ML SDV INJ ONE (07:00)
[2024-11-11] MEDS ORDERED: IBLOOD GLUCOSE TEST STRIP 1 EA TEST VI PRN ×2 (07:00→09:30)
[2024-11-11] MEDS ORDERED: DEXAMETHASONE SOD PHOS 4 MG/ML VIAL ONE (07:24)
[2024-11-11] MEDS ORDERED: fentaNYL citrate 100 MCG/2 ML VIAL ONE (07:24)
[2024-11-11] MEDS ORDERED: ESMOLOL HCL 100 MG/10 ML VIAL IV ONE (07:25)
[2024-11-11] MEDS ORDERED: LIDOCAINE HCL 2% 5 ML SDV ONE ×2 (07:25→07:35)
[2024-11-11] MEDS ORDERED: MAGNESIUM SULFATE 1 GM/2 ML VIAL ONE ×2 (07:25→07:34)
[2024-11-11] MEDS ORDERED: ROCURONIUM BROMIDE 50 MG/5 ML SYR ONE (07:25)
[2024-11-11] MEDS ORDERED: ACETAMINOPHEN 1,000 MG/100 ML VIAL ONE (07:40)
[2024-11-11] MEDS ORDERED: LACTATED RINGER'S 1,000 ML IV SCH (07:45)
[2024-11-11] MEDS ORDERED: HYDROmorphone HCL 1 MG/ML SYR IV PRN (07:45)
[2024-11-11] MEDS ORDERED: OXYCODONE/APAP 5/325 TAB PO PRN (07:45)
[2024-11-11] MEDS ORDERED: FAMOTIDINE 20 MG TAB PO SCH (09:00)
[2024-11-11] MEDS ORDERED: TRANEXAMIC ACID 1,000 MG/10 ML AMP ONE (09:18)
[2024-11-11] MEDS ORDERED: fentaNYL citrate 50 MCG/ML SDV IV PRN (09:30)
[2024-11-11] MEDS ORDERED: NALOXONE HCL 0.4 MG SYR IV PRN (09:30)
[2024-11-11] MEDS ORDERED: SUGAMMADEX SODIUM 200 MG/2 ML ML ONE (09:44)
[2024-11-11] MEDS ORDERED: ALBUTEROL SULFATE 0.083% 3 ML VIAL INH PRN (10:00)
--- NOTE | 2024-11-11 11:31 | NUR ---
11/11/24 1131 Mariscal,Zenaida Galeano 0955: PATIENT ARRIVED TO PACU DROWSY WITH ORAL AIRWAY IN PLACE. BREATHING SPONTANEOUSLY. 0957: CBI GOING. HAIDER BAG EMPTIED FOR 1200. LIGHT RED, PINKISH OUTPUT. 1004: ORAL AIRWAY OUT. O2 MASK ON AT 6 L/MIN. 1019: O2 MASK OFF. PATIENT ON ROOM AIR. 1025: NASAL CANNULA PLACED ON PATIENT AT 4 L/MIN. 1035: O2 SATS DOWN TO 87% DESPITE MULTIPLE QUES TO TAKE DEEP BREATHS THROUGH NOSE. O2 MASK REPLACED ON PATIENT AT 4 L. NASAL CANNULA OFF. 1045: O2 SATS MAINTAINING IN MID 90s WITH O2 MASK ON AT 4 L/MIN. 1055: PATIENT TRANSFERRED TO MED-SURG ROOM 108. PATIENT TOLERATED TRANSFER WELL. REPORT GIVEN TO MED-INTELLECTUAL PROPERTY LAWYER.
--- NOTE | 2024-11-11 11:32 | NUR ---
HANGING IVF, PT PUTTING DENTURES IN ASSISTED BY YENY JACKSON. PT TALKATIVE AND CONTINUALLY TAKING OXY MASK OFF. PT DENIES PAIN ATT JUST PENILE AND BLADDER DISCOMFORT FROM THE HAIDER. URINE CLEAR LIGHT YELLOW.
[2024-11-11] MEDS ORDERED: OXYCODONE HCL5 M1 PO (11:53)
[2024-11-11] MEDS ORDERED: CIPRO500 MG PO (11:55)
--- NOTE | 2024-11-11 12:05 | NUR ---
PATIENT CONVERTED FROM 4.5L VIA OXYMASK AT 97% TO 2L VIA NC @ 93%. VITALS ARE STABLE. ICE WATER PROVIDED. LUNCH IS ORDERED. PATIENT DENIES DISCOMFORT AT THIS TIME.
--- NOTE | 2024-11-11 12:40 | NUR ---
ROUNDED ON PT, EATING LUNCH. DENIES CONCERNS, STATES THE DISCOMFORT FROM THE HAIDER HAS SUBSIDED. CASE MG IN ROOM TO EVALUATE.
[2024-11-11] MEDS ORDERED: SEVOFLURANE 250 ML BTL INH ONE (13:08)
--- NOTE | 2024-11-11 13:33 | NUR ---
PT REMAINS RESTING IN BED. STATES HE NOW HAS A HEADACHE AND BLADDER DISCOMFORT AGAIN. RATES 8\10.
--- NOTE | 2024-11-11 13:45 | NUR ---
INTO SEE PATIENT. PERSONAL HEALTH INFORMATION REVIEWED. PATIENT LIVES ALONE IN APARTMENT. PATIENT HAS 3 STEPS INTO. PATIENT DOES NOT USE ANY DME BUT DOES HAVE A WALKER. PATIENT DRIVES. DENIES ANY DIFFCULTY PAYING UTLITIES OBTAINING FOOD. PATIENT CONCERNED ABOUT PCP BECAUSE DR. SANTANA IS LEAVING. ESTABLISHED PATIENT WITH RYANN SUTTON December AT 1:00PM. NO FUTHER CM NEEDS.
--- NOTE | 2024-11-11 14:37 | NUR ---
HOURLY ROUNDING. PATIENT USEDTHE CAMMODE, CALL LIGHT HAS BEEN PLACED WITHIN REACH
[2024-11-11] MEDS ORDERED: ROBITUSSIN COU118 ML PO (15:49)
[2024-11-11] MEDS ORDERED: [UNRECOGNIZED DRUG - OTHER] MM (15:49)
[2024-11-11] MEDS ORDERED: BENADRYL25 MG PO (15:49)
--- NOTE | 2024-11-11 15:51 | NUR ---
MED REC COMPLETE
[2024-11-11] MEDS ORDERED: TRIAMTERENE/HCTZ 37.5/25 1 EA TAB PO SCH (17:00)
--- NOTE | 2024-11-11 20:24 | NUR ---
Pt awake, repositioned in bed, hob elevated rolled up neck towel roll his requests. On 2LNC that he keeps taking off. CPOX post op at bedside desatted to 76% when talking and then inmediately back up to 90%. Instructed to keep NC O2 in place, semireceptive. talkative. Lungs clear dim at bases. large abd domenic. LBM 11/09 or 11/10 his answer. F?C patent draining clear yellow urine. no pink or red coloring. cath care done. SCDS in place. trace edema to ankle and feet. elevated to comofrt, then down as he did not like them elevated. IVF infusing LFA. No c/o pain. Tolerating liquids well. Bed alrms in place.
--- NOTE | 2024-11-12 00:56 | NUR ---
RESTING, EYES CLOSED, O22LNC , CPOX ON AT BEDSIDE, IVF , F/C TO GRAVITY. SCDS IN PLACE, NO S/SX DISTRESS. ALRMS IN PLACE, PT IS ON BEDREST AT THIS TIME
[2024-11-12 01:14] VITALS: BP 127/60
--- NOTE | 2024-11-12 01:15 | NUR ---
PT LYING IN BED AWAKE. VITALS TAKEN AND WATER REFILLED.
[2024-11-12 02:03] VITALS: BP 127/60
--- NOTE | 2024-11-12 03:06 | NUR ---
AWAKE, TALKING TO SELF, "I WAS JUST CONTEMPLATING LIFE" STATED. PLEASANT AND COOPERATIVE. O2 IN PLACE, CPOX READING WNL. F/C PATENT DRAINING CLEAR YELLOW DRAINAGE. SCDS IN PLACE, HOB ELEVATED, REPOSITIONS SELF IN BED, NO C/O PAIN AT THIS TIME. TOLERATING LIQUIDS WELL, IVF INFUSING
[2024-11-12 05:06] VITALS: BP 130/70
--- NOTE | 2024-11-12 05:13 | NUR ---
PT AWAKE IN BED, VITALS DONE, BOOSTED IN BED, GIVEN FIXODENT FOR DENTURES. CALL LIGHT IN REACH.
--- NOTE | 2024-11-12 05:23 | NUR ---
PT ON ROOM AIR 92%, 94% WITH O2 2L NC IN PLACE, WILL WEANOFF TO ROOM AIR IF TOLERATED. CPOX POST OPAT BEDSIDE, LUNGS DIM AT BASES. NO COUGH. SITTING UP POSITION IN BED. NO BM. BEDREST. F/C PATENT DRAINING DARK YELLOW URINE. CBI OFF ALL THIS SHIFT. ALERT AND ORIENTED, COOPERATIVE. NO C/O PAIN. SCDS IN PLACE, IVF INFUSING W/O PROBLEMS
--- NOTE | 2024-11-12 06:57 | NUR ---
f/c with pink colored urine, CBI restarted. Pt has been very active in bed, aware not to fidget with f/c. Pt seems to have some medical knowledge, stated ok. c/o L webbing between thumb and first finer looked different from R side. Pt instructed that he has IVF infusing on L wrist area close to where he c/o not looking right. area soft, no infiltration or edema noted at this time, compared to other hand
--- NOTE | 2024-11-12 07:42 | NUR ---
REPORT RECEIVED FROM EDITH EDWARD. PATIENT IN BED, DENIES CONCERNS AT THIS TIME. CALL LIGHT AND PERSONAL BELONGINGS IN REACH OF PATIENT.
[2024-11-12] MEDS ORDERED: DOCUSATE SODIUM 100 MG CAP PO ONE (08:15)
--- NOTE | 2024-11-12 08:19 | NUR ---
UR CLINICAL REVIEW: 2 MN FOR [facility] MEDICAL MANAGEMENT SPECIALIST MEETS EXTENDED STAY FOR TURPT WITH NEED FOR 24 HR CBI MEDICARE OUTPATIENT 11/11/24 @ 0749 ORDER MATCHES REG NO AUTH REQUIRED PER MEDICARE GUIDELINE DISCHARGE TO HOME 11/12/24 IF CBI IS CLEAR
[2024-11-12 08:43] VITALS: BP 128/64
--- NOTE | 2024-11-12 08:44 | NUR ---
HOURLY ROUNDING. PATIENT GIVEN WARM WASHCLOTH TEETH HAS BEEN CLEANED. WATER CUOP FILLED NO REQUEST FROM PATIENT AT THIS TIME. BOARD UPDATED AND ROOM TIDY
--- NOTE | 2024-11-12 09:00 | NUR ---
Spoke with Ruy. He plans on dc today. He denies any needs. Friends will assist him with grocerys and drive him home.
--- NOTE | 2024-11-12 09:43 | NUR ---
PATIENT IN BED. ASSESMENT COMPLETED. SCHEDULED MEDICATIONS ADMINISTERED. PATIENT DENIES CONCERNS.
--- NOTE | 2024-11-12 10:24 | NUR ---
PATIENT IN BED, CALL LIGHT AND PERSONAL BELONGINGS IN REACH OF PATIENT.
--- NOTE | 2024-11-12 11:21 | NUR ---
HAIDER CATHETER REMOVED, WNL. 30 ML STERILE WATER REMOVED FROM [place], TIP INTACT. PATIENT TOLERATED WELL. PATIENT EDUCATION PROVIDED, ADVISED PATIENT TO CALL WHEN HE FEELS THE URGE TO URINATE. GEETHA CARE COMPLETED. CALL LIGHT AND PERSONAL BELONGINGS IN REACH OF PATIENT. PATIENT DENIES CONCERNS AT THIS TIME.
--- NOTE | 2024-11-12 11:23 | NUR ---
PT NOT AVAILABLE FOR VISIT. PROVIDED PRAYER.
--- NOTE | 2024-11-12 12:27 | NUR ---
DISCHARGE ORDERS RECEIVED. ASSISTED PATIENT TO DRESS IN HIS OWN CLOTHES. VITAL SIGNS COMPLETED. REVIEWED DISCHARGE INSTRUCTIONS VERBALLY WITH PATIENT, PATIENT VERBALIZED UNDERSTANDING. PATIENT PROVIDED WITH WRITTEN DISCHARGE INFORMATION TO TAKE HOME WITH HIM. IV SITE DC'D WNL, TIP INTACT. PER MD, OK TO DISCHARGE PRIOR TO FIRST VIOD AFTER REMOVING HAIDER. ADVISED PATIENT TO RETURN TO ER IF HE HAS NOT VOIDED BY 1930. PATIENT VERBALIZED UNDERSTANDING AND DENIES QUESTIONS OR CONCERNS AT THIS TIME. HARD COPY RX PROVIDED TO PATIENT. PHARMACY IN ROOM FOR MEDICATION TEACHING.
--- NOTE | 2024-11-12 12:35 | NUR ---
PATIENT OFF UNIT VIA WHEELCHAIR WITH THIS RN AND IMAN Carballo RN. PATIENT WITH OWN CLOTHES, TWO SETS OF CAR AND OTHER KEYS, WALLET, WATCH, HOME MEDICATIONS, DISCHARGE TEACHING, HARD COPY RX, GLASSES, AND BREIFCASE. PATIENT TO HIS OWN CAR IN PARKING LOT VIA WHEELCHAIR. PATIENT DENIES CONCERNS. PATIENT TO DRIVE SELF HOME.
--- NOTE | 2024-11-14 12:27 | PATH ---
[facility] [address] [place], [place] [address] Signed SPECIMEN(S): A PROSTATE CHIPS SPECIMEN SOURCE: A. PROSTATE CHIPS CLINICAL HISTORY: BPH with LUTS, TURP FINAL PATHOLOGIC DIAGNOSIS: Prostate chips: - Benign prostatic glandular tissue with stromal and glandular hyperplasia. - Chronic stromal inflammation. JVR MICROSCOPIC EXAMINATION: Histologic sections of all submitted blocks are examined by light microscopy. These findings, together with the gross examination, support the pathologic diagnosis. GROSS DESCRIPTION: The specimen, labeled and designated "Radha, prostate chips," is received in formalin and consists of multiple fragments of pink-chapa soft and rubbery tissue (19.1 g, 6.5 x 6.5 x 2.4 cm in aggregate). Approximately 70% of the specimen is submitted in cassette (A1-A9). VB (under the direct supervision of a pathologist) The Gross Description was prepared using a voice recognition system. The report was reviewed for accuracy; however, sound-alike word errors, addition and/or deletions may occur. If there is any question about this report, please contact Client Services. ADDITIONAL NOTES: Immunohistochemical and/or in situ hybridization studies if performed in this case included appropriate positive controls that reacted as expected. This test was developed and its performance characteristics determined by [facility]. It has not been cleared or approved by the U.S. Food and Drug Administration. The FDA has determined that such clearance or approval is not necessary. This test is used for clinical purposes. It should not be regarded as investigational or for research. [facility] is certified under the Clinical Laboratory Improvement PATIENT NAME: ZOEY HUGHES PATHOLOGY DATE OF : 49 REPORT #: [id number] PHYSICIAN: KOLE TEJEDA PCP: JULIANA SANTANA MD REPORT IS CONFIDENTIAL AND NOT TO BE RELEASED WITHOUT AUTHORIZATION [address] [place], [place] [address] Signed Amendments of 1988 (CLIA) as qualified to perform high complexity clinical laboratory testing. PERFORMING LABORATORY: Technical component was performed by [facility], [address] [place] [id number] (CLIA# [id number]). Professional interpretation was performed by [facility] - [facility] - [address] [place] [id number] (CLIA#: [id number]). Diagnostician: Samy Menendez MD Pathologist Electronically Signed 11/13/2024 Copies: ~ PATIENT NAME: ZOEY HUGHES PATHOLOGY DATE OF : 49 REPORT #: [id number] PHYSICIAN: KOLE TEJEDA PCP: JULIANA SANTANA MD REPORT IS CONFIDENTIAL AND NOT TO BE RELEASED WITHOUT AUTHORIZATION
== END 2024-11-12 12:35 | disposition home or self-care (01) ==
LOC: DS 05:32 → MS 10:50 → DS 11-12 12:35
PROVIDERS: ATTEND Urology
PROC: 0VT08ZZ Resection of Prostate, Via Natural or Artificial Opening Endoscopic (ICD-10-PCS; principal; 2024-11-11 07:30)
DX: N40.1 Benign prostatic hyperplasia with lower urinary tract symptoms (principal); R39.14 Feeling of incomplete bladder emptying; N41.1 Chronic prostatitis; N32.89 Other specified disorders of bladder; J44.9 Chronic obstructive pulmonary disease, unspecified; I10 Essential (primary) hypertension; F20.9 Schizophrenia, unspecified; F31.81 Bipolar II disorder; E78.2 Mixed hyperlipidemia; F17.211 Nicotine dependence, cigarettes, in remission; Z79.899 Other long term (current) drug therapy; Z88.0 Allergy status to penicillin
CPT/HCPCS: 00914; 51700; 88305; 96360; 96361; 96365; C1713; C1769; J0131; J0688; J0696; J1100; J2003; J2405; J2704; J3010; J3475; J3490; J7121